=== PATIENT | female | born 1990 | race Two or more races ===

== ENCOUNTER → 2021-12-08 10:42 | Outpatient (BNVA) | payer OTHER, SELFPAY | PROVIDERS: Visit Provider Physician Assistant Medical | DX: S39.011A Strain of muscle, fascia and tendon of abdomen, initial encounter (principal); S76.011A Strain of muscle, fascia and tendon of right hip, initial encounter; S39.012A Strain of muscle, fascia and tendon of lower back, initial encounter; W01.0XXA Fall on same level from slipping, tripping and stumbling without subsequent striking against object, initial encounter | CPT/HCPCS: 99203 ==

== ENCOUNTER → 2021-12-15 13:40 | Outpatient (BNVA) | payer OTHER, SELFPAY | PROVIDERS: Visit Provider Physician Assistant Medical | DX: S39.011A Strain of muscle, fascia and tendon of abdomen, initial encounter (principal); S76.011A Strain of muscle, fascia and tendon of right hip, initial encounter; S39.012A Strain of muscle, fascia and tendon of lower back, initial encounter; M54.16 Radiculopathy, lumbar region; W01.0XXA Fall on same level from slipping, tripping and stumbling without subsequent striking against object, initial encounter | CPT/HCPCS: 99213 ==

== ENCOUNTER → 2021-12-27 14:32 | Outpatient (BNVA) | payer OTHER, SELFPAY | PROVIDERS: Visit Provider Physician Assistant Medical | DX: S39.011D Strain of muscle, fascia and tendon of abdomen, subsequent encounter (principal); S76.011D Strain of muscle, fascia and tendon of right hip, subsequent encounter; S39.012D Strain of muscle, fascia and tendon of lower back, subsequent encounter; M54.16 Radiculopathy, lumbar region; W01.0XXD Fall on same level from slipping, tripping and stumbling without subsequent striking against object, subsequent encounter | CPT/HCPCS: 99213 ==

== ENCOUNTER → 2022-01-09 13:51 | Outpatient (BNVA) | payer OTHER, SELFPAY | PROVIDERS: Visit Provider Physician Assistant Medical | DX: S39.011D Strain of muscle, fascia and tendon of abdomen, subsequent encounter (principal); S76.011D Strain of muscle, fascia and tendon of right hip, subsequent encounter; S39.012D Strain of muscle, fascia and tendon of lower back, subsequent encounter; W01.0XXD Fall on same level from slipping, tripping and stumbling without subsequent striking against object, subsequent encounter; M54.16 Radiculopathy, lumbar region; M25.562 Pain in left knee | CPT/HCPCS: 73564; 99214 ==

== ENCOUNTER 2022-01-17 15:00 | Outpatient (RCR) | payer OTHER, SELFPAY ==
--- NOTE | 2021-12-20 18:07 | MHC.PT.EP ---
[facility] [place] Office [place] Office [place] Office [address] [phone] F: [phone] F: [phone] F: [phone] F: [phone] Physical Therapy Plan of Care Date of Evaluation: Date of Surgery: Diagnosis: R hip/groin strain, R lumbar sprain with radiculopathy Assessment: Patient is pleasant 31 y.o woman who comes to PT with dx of R hip/groin strain and R lumbar strain with radiculopathy after slip and fall injury at work. She presents with limited AROM, pain, weakness, antalgic gait, impaired functional mobility with squatting, bending, lifting, reaching and is unable to perform full duty work tasks at this time. She is a good candidate for skilled physical therapy to address aforementioned impairments and restore to PLOF and return to full duty work. Frequency and Duration: The patient will be seen 2x/week for 6 weeks Short Term Goals: 3 weeks Patient is able to demonstrate independence with HEP to self manage symptoms and reduce pain level 4/10. Patient presents with increased R hip flexion 115 degrees without pain to be able to perform squats for work tasks. 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 Patient presents with increased hip flexion strength 5/5 to be able to ascend/descend steps or rungs of ladder for work tasks. Treatment Plan: Modalities to reduce pain, spasms and effusion. Manual therapy to restore motion and function. Therapeutic exercise to improve strength and flexibility. Neuromuscular re-education for posture and balance. Therapeutic activities to return to functional activities of daily living. Electronically signed by: Julissa Pedro, PT, DPT Please sign and return to therapist. Thank you for your referral.
--- NOTE | 2022-02-24 14:22 | MHC.PT.DC ---
[facility] [place] Office [place] Office [place] Office [address] [place] [address] [phone] F: [phone] F: [phone] F: [phone] F: [phone] Physical Therapy Discharge Report Diagnosis: R hip/groin strain, R lumbar sprain with radiculopathy Date of Surgery: Date of Evaluation: 12/20/21 Date of Discharge: 02/24/22 Treatments to Date: 6 Cancellations to Date: 2 No Shows to Date: Discharge Status: Visit Non-compliance Discharge Summary: Patient was last treated in PT 01/17/22. She did not attend any FUP visits past 01/17/22. Therfore she is discharged from PT. Electronically signed by: Julissa Pedro, PT, DPT Please sign and return to therapist. Thank you for your referral.
== END 2022-02-24 14:22 | disposition home or self-care (01) ==
LOC: HO.PT 15:00
PROVIDERS: Visit Provider Physician Assistant Medical
DX: M54.16 Radiculopathy, lumbar region (principal); S39.011D Strain of muscle, fascia and tendon of abdomen, subsequent encounter; S76.011D Strain of muscle, fascia and tendon of right hip, subsequent encounter
CPT/HCPCS: 97110; 97140; 97161; 97530

== ENCOUNTER → 2022-01-24 13:27 | Outpatient (BNVA) | payer OTHER, SELFPAY | PROVIDERS: Visit Provider Physician Assistant Medical | DX: S39.011D Strain of muscle, fascia and tendon of abdomen, subsequent encounter (principal); S76.011D Strain of muscle, fascia and tendon of right hip, subsequent encounter; S39.012D Strain of muscle, fascia and tendon of lower back, subsequent encounter; W01.0XXD Fall on same level from slipping, tripping and stumbling without subsequent striking against object, subsequent encounter; M54.16 Radiculopathy, lumbar region; M25.562 Pain in left knee | CPT/HCPCS: 99213 ==

== ENCOUNTER → 2022-02-02 13:45 | Outpatient (BNVA) | payer OTHER, SELFPAY | PROVIDERS: Visit Provider Physician Assistant Medical | DX: M25.562 Pain in left knee (principal); S76.011D Strain of muscle, fascia and tendon of right hip, subsequent encounter; S39.011D Strain of muscle, fascia and tendon of abdomen, subsequent encounter; S39.012D Strain of muscle, fascia and tendon of lower back, subsequent encounter; W01.0XXD Fall on same level from slipping, tripping and stumbling without subsequent striking against object, subsequent encounter | CPT/HCPCS: 99213 ==

== ENCOUNTER 2022-02-21 14:55 | Outpatient (REF) | payer OTHER, SELFPAY ==
--- NOTE | ~2022-02-21 | MR_ITS ---
EXAMINATION: MR KNEE WITHOUT CONTRAST, LEFT CLINICAL INFORMATION: Previous falls with persistent pain COMPARISON: None TECHNIQUE: MRI of the knee without contrast was performed using routine sequences on a high-field scanner. FINDINGS: MENISCI: Medial Meniscus: There is a peripheral vertical longitudinal tear of the posterior horn. Lateral Meniscus: Intact LIGAMENTS: Cruciate: Chronic complete ACL tear with resorption. The posterior cruciate ligament is intact. Collateral: Intact EXTENSOR MECHANISM: Intact ARTICULAR CARTILAGE/BONE: Patellofemoral Compartment: Normal Medial Compartment: Normal Lateral Compartment: Normal JOINT FLUID AND BURSAE: No significant joint effusion. MR/MR knee LT wo con IMPRESSION: 1. Chronic complete ACL tear with resorption. 2. Peripheral vertical longitudinal tear of the posterior horn of the medial meniscus.
== END 2022-02-21 14:56 | disposition home or self-care (01) ==
LOC: HO.MRI 14:55
PROVIDERS: Visit Provider Internal Medicine
DX: M25.562 Pain in left knee (principal); Z91.81 History of falling
CPT/HCPCS: 73721

== ENCOUNTER → 2022-03-02 13:39 | Outpatient (BNVA) | payer OTHER, SELFPAY | PROVIDERS: Visit Provider Physician Assistant Medical | DX: S83.512D Sprain of anterior cruciate ligament of left knee, subsequent encounter (principal); S83.242D Other tear of medial meniscus, current injury, left knee, subsequent encounter; S39.012D Strain of muscle, fascia and tendon of lower back, subsequent encounter; S76.011D Strain of muscle, fascia and tendon of right hip, subsequent encounter; W01.0XXD Fall on same level from slipping, tripping and stumbling without subsequent striking against object, subsequent encounter | CPT/HCPCS: 99213 ==

== ENCOUNTER → 2022-03-16 14:17 | Outpatient (BNVA) | payer OTHER, SELFPAY | PROVIDERS: Visit Provider Physician Assistant Medical | DX: M25.562 Pain in left knee (principal); S83.512D Sprain of anterior cruciate ligament of left knee, subsequent encounter; S83.242D Other tear of medial meniscus, current injury, left knee, subsequent encounter; S39.012D Strain of muscle, fascia and tendon of lower back, subsequent encounter; W01.0XXD Fall on same level from slipping, tripping and stumbling without subsequent striking against object, subsequent encounter | CPT/HCPCS: 99213 ==

== ENCOUNTER 2022-03-23 14:23 | Outpatient (REF) | payer OTHER, SELFPAY ==
--- NOTE | ~2022-03-23 | MR_ITS ---
EXAMINATION: MR LUMBAR SPINE WITHOUT CONTRAST CLINICAL INFORMATION: Strain. Radiculopathy. COMPARISON: No relevant prior imaging. TECHNIQUE: MRI of the lumbar spine was obtained using routine sequences without contrast. FINDINGS: Alignment is normal. Vertebral heights are preserved. No acute bone marrow signal changes. There is disc desiccation at L4-L5 and L5-S1 without substantial loss of intervertebral disc height. The tip of the conus medullaris is located at T12-L1. No mass effect on the conus. Visualized distal cord signal intensity is normal. At L1-L2, L2-L3, and L3-L4 the annular contours are normal. No canal or neuroforaminal compromise at levels. At L4-L5 there is a slightly bulging disc. Bilateral facet degenerative change. No canal stenosis. No mass effect on the traversing or foraminal nerve roots. At L5-S1 there is a broad shallow central protrusion. Bilateral facet degenerative change. No canal stenosis. Partial effacement of the perineural fat with mild mass effect on both L5 foraminal nerve root. Limited visualization of the retroperitoneal anatomy reveals no abnormal finding. Psoas and paraspinal muscle groups are symmetric. MR/MR lumbar spine wo con IMPRESSION: There is a broad shallow central protrusion at L5-S1 causing mild mass effect on both L5 foraminal nerve roots. Otherwise no substantial mass effect on the traversing or foraminal nerve roots elsewhere within the lumbar spine. No canal stenosis.
== END 2022-03-23 14:24 | disposition home or self-care (01) ==
LOC: HO.MRI 14:23
PROVIDERS: Visit Provider Internal Medicine
DX: M54.16 Radiculopathy, lumbar region (principal)
CPT/HCPCS: 72148

== ENCOUNTER → 2022-03-30 14:20 | Outpatient (BNVA) | payer OTHER, SELFPAY | PROVIDERS: Visit Provider Physician Assistant Medical | DX: S83.242D Other tear of medial meniscus, current injury, left knee, subsequent encounter (principal); S83.422D Sprain of lateral collateral ligament of left knee, subsequent encounter; W01.0XXD Fall on same level from slipping, tripping and stumbling without subsequent striking against object, subsequent encounter; M51.27 Other intervertebral disc displacement, lumbosacral region | CPT/HCPCS: 99213 ==

== ENCOUNTER → 2022-05-01 15:05 | Outpatient (BNVA) | payer OTHER, SELFPAY | PROVIDERS: Visit Provider Physician Assistant Medical | DX: S83.32XD Tear of articular cartilage of left knee, current, subsequent encounter (principal); S83.242D Other tear of medial meniscus, current injury, left knee, subsequent encounter; W18.30XD Fall on same level, unspecified, subsequent encounter; M51.27 Other intervertebral disc displacement, lumbosacral region | CPT/HCPCS: 99213 ==

== ENCOUNTER → 2022-05-08 08:06 | Outpatient (BNVA) | payer OTHER, SELFPAY | PROVIDERS: Visit Provider Internal Medicine | DX: M53.3 Sacrococcygeal disorders, not elsewhere classified (principal); S83.519A Sprain of anterior cruciate ligament of unspecified knee, initial encounter | CPT/HCPCS: 99202 ==

== ENCOUNTER → 2022-05-23 15:01 | Outpatient (BNVA) | payer OTHER, SELFPAY | PROVIDERS: Visit Provider Physician Assistant Medical | DX: M51.27 Other intervertebral disc displacement, lumbosacral region (principal); M53.3 Sacrococcygeal disorders, not elsewhere classified; S83.512D Sprain of anterior cruciate ligament of left knee, subsequent encounter; S83.242D Other tear of medial meniscus, current injury, left knee, subsequent encounter; W01.0XXD Fall on same level from slipping, tripping and stumbling without subsequent striking against object, subsequent encounter | CPT/HCPCS: 99213 ==

== ENCOUNTER → 2022-07-03 14:50 | Outpatient (BNVA) | payer OTHER, SELFPAY | PROVIDERS: Visit Provider Physician Assistant Medical | DX: S39.012D Strain of muscle, fascia and tendon of lower back, subsequent encounter (principal); S83.512D Sprain of anterior cruciate ligament of left knee, subsequent encounter; W01.0XXD Fall on same level from slipping, tripping and stumbling without subsequent striking against object, subsequent encounter; M51.27 Other intervertebral disc displacement, lumbosacral region | CPT/HCPCS: 99213 ==

== ENCOUNTER → 2022-09-07 10:32 | Outpatient (BNVA) | payer OTHER, SELFPAY | PROVIDERS: Visit Provider Physician Assistant Medical | DX: M51.16 Intervertebral disc disorders with radiculopathy, lumbar region (principal); M23.92 Unspecified internal derangement of left knee; M23.204 Derangement of unspecified medial meniscus due to old tear or injury, left knee; Z91.81 History of falling | CPT/HCPCS: 99213 ==

== ENCOUNTER → 2023-12-03 09:57 | Outpatient (BNVA) | payer OTHER, SELFPAY | PROVIDERS: Visit Provider Physician Assistant Medical | DX: S39.012A Strain of muscle, fascia and tendon of lower back, initial encounter (principal); X50.3XXA Overexertion from repetitive movements, initial encounter | CPT/HCPCS: 99203 ==

== ENCOUNTER → 2023-12-11 10:08 | Outpatient (BNVA) | payer OTHER, SELFPAY | PROVIDERS: Visit Provider Physician Assistant Medical | DX: S39.012A Strain of muscle, fascia and tendon of lower back, initial encounter (principal); X50.3XXA Overexertion from repetitive movements, initial encounter | CPT/HCPCS: 99213 ==

== ENCOUNTER 2023-12-14 11:00 | Outpatient (RCR) | payer OTHER, MEDICAID, SELFPAY ==
--- NOTE | 2023-12-07 11:22 | MHC.PT.EP ---
[facility] [place] Office [place] Office [place] Office [address] [phone] F: [phone] F: [phone] F: [phone] F: [phone] Physical Therapy Plan of Care Date of Evaluation: 12/07/23 Date of Surgery: Diagnosis: LS strain Assessment: 33 y/o female referred to PT with LS strain from work connection. Pt reports injury occurred 11/28- when performing new job task of lifting 50-60# boxes from hip height to overhead following release from light duty. Of note, pt reports initial work injury 2 years ago when she slipped and fell on wet floor. She landed on L flexed knee and R extended leg (splits?). She went via ambulance to hospital and lumbar MRI was done. States she has pinched nerve L5-S1 and L ACL tear. She underwent PT for L ACL repair 07/27/23 and was on light duty until 11/27/2023. S/s consistent with lumbar derangement resulting in pain and difficulty with forward bending, lifting, walking, moving in bed, reversing in car, and work duties. Examination shows decreased lumbar ROM, pain, decreased R hip ROM, decreased core/hip strength, impaired postural awareness and impaired gait pattern. Recommend PT 2x/week for 5 weeks to address impairments, implement HEP, and optimize fucntional mobility Frequency and Duration: The patient will be seen 2x/week for 5 weeks Short Term Goals: 3 weeks I with HEP Pt will demonstrate R hip ER/IR ROM to 30 * to facilitate functional movement pt will reports 50% decrease in pain with functional activity Vp Clinical Research Goals: 5 weeks I with HEP and self management of sx Pt will be able to ambulate > 25 minutes with pain < 3/10 Pt will be able to lift > 30# with pain < 3/10 and proper mechanics Treatment Plan: Modalities to reduce pain, spasms and effusion. Manual therapy to restore motion and function. Therapeutic exercise to improve strength and flexibility. Neuromuscular re-education for posture and balance. Therapeutic activities to return to functional activities of daily living. Electronically signed by: Merna Velez PT Please sign and return to therapist. Thank you for your referral.
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
== END 2024-01-28 08:28 | disposition home or self-care (01) ==
LOC: HO.PTCHIC 11:00
PROVIDERS: Visit Provider Physician Assistant Medical
DX: S39.012D Strain of muscle, fascia and tendon of lower back, subsequent encounter (principal)
CPT/HCPCS: 97110; 97140; 97162

== ENCOUNTER → 2023-12-24 11:27 | Outpatient (BNVA) | payer OTHER, SELFPAY | PROVIDERS: Visit Provider Physician Assistant Medical | DX: S39.012A Strain of muscle, fascia and tendon of lower back, initial encounter (principal); X50.3XXA Overexertion from repetitive movements, initial encounter | CPT/HCPCS: 99213 ==

== ENCOUNTER → 2024-01-14 09:13 | Outpatient (BNVA) | payer OTHER, SELFPAY | PROVIDERS: Visit Provider Physician Assistant Medical | DX: S39.012D Strain of muscle, fascia and tendon of lower back, subsequent encounter (principal); X50.3XXD Overexertion from repetitive movements, subsequent encounter; M25.562 Pain in left knee | CPT/HCPCS: 99213 ==

== ENCOUNTER → 2024-01-29 13:19 | Outpatient (BNVA) | payer OTHER, SELFPAY | PROVIDERS: Visit Provider Physician Assistant Medical | DX: S39.012D Strain of muscle, fascia and tendon of lower back, subsequent encounter (principal); X50.3XXD Overexertion from repetitive movements, subsequent encounter; M54.17 Radiculopathy, lumbosacral region | CPT/HCPCS: 99213 ==

== ENCOUNTER → 2024-03-11 09:56 | Outpatient (BNVA) | payer OTHER, SELFPAY | PROVIDERS: Visit Provider Physician Assistant Medical | DX: M46.1 Sacroiliitis, not elsewhere classified (principal); M54.50 Low back pain, unspecified | CPT/HCPCS: 99213 ==

== ENCOUNTER 2024-03-25 13:55 | Outpatient (RCR) | payer OTHER, SELFPAY ==
--- NOTE | 2024-02-14 16:18 | MHC.PT.EP ---
[facility] [place] Office [place] Office [place] Office [address] [place] [address] [phone] F: [phone] F: [phone] F: [phone] F: [phone] Physical Therapy Plan of Care Date of Evaluation: 02/14/24 Date of Surgery: N/A for spine Diagnosis: lumbar sacral strain (RL) Assessment: pt is a 33 y/o female presenting to physical therapy w/ referring diagnosis of lumbar sacral strain. Impairments include pain, decreased range of motion, decreased strength, impaired functional mobility, impaired postural awareness, and altered ambulation mechanics. pt is a good candidate for skilled PT due to age, potential remediation of impairments, typical disease/condition progression and prognosis, comorbidities, and motivation. pt would benefit from skilled PT intervention to provide a tailored strengthening and stretching exercise program, functional training, gait training, postural re-training, neuromuscular re-education, modalities as needed for pain, equipment safety demonstration. Frequency and Duration: The patient will be seen 2x/wk for 6 wks Short Term Goals: pt will be I w/ HEP to promote self-management of condition. pt will demo proper sitting posture w/ lumbar roll to promote neutral spine w/ seated ADLs. Senior Care Goals: pt will report a statistically significant improvement in self-reported outcome measure, [place], to promote return to PLOF. pt will demo proper lifting mechanics w/ 45# x5 reps to promote neutral spine w/ lifting. Treatment Plan: Modalities to reduce pain, spasms and effusion. Manual therapy to restore motion and function. Therapeutic exercise to improve strength and flexibility. Neuromuscular re-education for posture and balance. Therapeutic activities to return to functional activities of daily living. Electronically signed by: Columba Maher PT, DPT Please sign and return to therapist. Thank you for your referral.
--- NOTE | 2024-04-03 14:38 | MHC.PT.DC ---
[facility] [place] Office [place] Office [place] Office [address] [place] [address] [phone] F: [phone] F: [phone] F: [phone] F: [phone] Physical Therapy Discharge Report Diagnosis: lumbar sacral strain (RL) Date of Surgery: N/A for spine Date of Evaluation: 02/14/24 Date of Discharge: 04/03/24 Treatments to Date: 9 Cancellations to Date: 2 No Shows to Date: 1 Discharge Status: Improved Function Independent with HEP Discharge Summary: The patient overall has been having little to no radicular symptoms. She continues to have intermittent back pain which she describes as sore and uncomfortable. At this time, she would like to pursue an MRI and follow-up with her providers to determine if there are any other interventions that may be appropriate for back pain management. She is discharged to her home exercise program at this time. Electronically signed by: Columba Maher PT, DPT Please sign and return to therapist. Thank you for your referral.
== END 2024-04-03 14:39 | disposition home or self-care (01) ==
LOC: HO.PT 13:55
PROVIDERS: Visit Provider Physician Assistant Medical
DX: S39.012D Strain of muscle, fascia and tendon of lower back, subsequent encounter (principal)
CPT/HCPCS: 97110; 97112; 97161; 97164

== ENCOUNTER → 2024-04-07 15:09 | Outpatient (BNVA) | payer OTHER, SELFPAY | PROVIDERS: Visit Provider Physician Assistant Medical | DX: M54.17 Radiculopathy, lumbosacral region (principal) | CPT/HCPCS: 99213 ==

== ENCOUNTER 2024-04-12 08:12 | Outpatient (REF) | payer OTHER, SELFPAY | END 2024-04-12 08:13 | disposition home or self-care (01) | LOC: HO.MRI 08:12 | PROVIDERS: Visit Provider Internal Medicine | DX: M54.50 Low back pain, unspecified (principal) | CPT/HCPCS: 72148 ==

== ENCOUNTER → 2024-04-12 08:20 | Outpatient (BNV) | payer OTHER, SELFPAY | PROVIDERS: Visit Provider Radiology Diagnostic Radiology | DX: M47.896 Other spondylosis, lumbar region (principal); M48.07 Spinal stenosis, lumbosacral region; M51.27 Other intervertebral disc displacement, lumbosacral region | CPT/HCPCS: 72148 ==

== ENCOUNTER → 2024-05-01 14:51 | Outpatient (BNVA) | payer OTHER, SELFPAY | PROVIDERS: Visit Provider Physician Assistant Medical | DX: M48.061 Spinal stenosis, lumbar region without neurogenic claudication (principal); S33.6XXD Sprain of sacroiliac joint, subsequent encounter; X50.3XXD Overexertion from repetitive movements, subsequent encounter | CPT/HCPCS: 99213 ==

== ENCOUNTER → 2024-05-08 09:40 | Outpatient (BNVA) | payer OTHER, SELFPAY | PROVIDERS: Visit Provider Physician Assistant Medical | DX: M48.07 Spinal stenosis, lumbosacral region (principal); R53.83 Other fatigue; T48.1X5A Adverse effect of skeletal muscle relaxants [neuromuscular blocking agents], initial encounter | CPT/HCPCS: 99213 ==

== ENCOUNTER 2024-05-30 11:45 | Outpatient (AMB) | payer OTHER, SELFPAY ==
--- NOTE | 2024-05-30 11:47 | A.OFFVIS_ITS ---
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 Having experienced chronic low back pain attributed to sacroiliac joint dysfunction and L5-S1 disc degeneration following a fall while at work, she notes persistent pain primarily on the right side of the back. The pain has been described as non-radiating to the lower legs, with occasional right knee discomfort, but not extending to her feet. The patient undertook physical therapy treatments; however, the results were unsatisfactory in ameliorating her symptoms. She has expressed concern over exercise strategies, which seem not directly targeting the source of her pain. She reports overall decline in strength, feeling weaker on her left side, with ongoing moderate symptoms without significant improvement. A recent MRI reported mild findings, leading to consideration of a diagnostic injection to assess potential sacroiliac joint issues more accurately. Pain Description - Onset and Timing: Pain began after a fall, work-related injury. - Quality and Character: Described as persistent on the right side of the back. - Primary Location: Right-sided back pain. - Radiation: Occasionally to the right knee; no pain to foot or ankle. - Exacerbating Factors: Activity increases discomfort, particuarly ineffective therapeutic exercises. - Relieving Factors: None noted as physical therapy not achieving desired relief. - Impact on Function: Difficulty in utilizing right leg; overall decreased physical strength. Physical Exam - Musculoskeletal- Positive Alexander test, positive sacroiliac joint compression, and thrust test noted. Results - Imaging: Reviewed MRI, mild findings unresolved as primary cause of severity of symptoms. Pain Management - Affect: Noted decline in feeling strong; feeling angered and sad due to ongoing symptoms and reduced function. - Analgesia: No specific pain medication regimen mentioned; management not specified in conversation. - Adverse Effects: None noted. - Activities of Daily Living: Feeling weaker, difficulty using right leg, impacting daily life. - Aberrant Drug Related Behaviors: None noted. Physical Exam Vital Signs: Last Vital Signs Pulse 67 05/30/24 11:49 Resp 16 05/30/24 11:49 BP 111/58 L 05/30/24 11:49 Pulse Ox 99 05/30/24 11:49 Oxygen Delivery Method Room Air 05/30/24 11:49 BMI result Body Mass Index 31.3 Assessment & Plan Assessment & Plan (1) Sacroiliac joint pain: Code(s): M53.3 - Sacrococcygeal disorders, not elsewhere classified Category: Medical Plan Plan For sacroiliac joint dysfunction and right-sided back pain, a diagnostic injection at the sacroiliac joint is intended to confirm the pain source, pending insurance authorization. This injection doubles as both diagnostic and therapeutic if confirmed. The patient's dissatisfaction with current physical therapy strategies was noted. The first injection's diagnostic purpose was highlighted to ascertain thorough pain origin confirmation. No immediate surgical interventions were discussed at this time. Patient was informed and verbally consented to the use of an ambient scribe for clinic note documentation during this visit. Discussion Notes During the consultation, we discussed the likely original sacroiliac joint dysfunction diagnosis, along with management strategies for her back pain. The possibility of proceeding with a diagnostic injection to confirm the sacroiliac joint as the pain source was emphasized, which would guide future therapeutic measures. Explanation of injection procedure details was provided, stating its role as a test to identify pain sources accurately. The alternatives, including continued physical therapy, were reviewed, with recognition of its current ineffectiveness per patient reporting. Consent discussions clarified that no surgical intervention is currently planned, focusing on injections and evidence- driven pain identification. Patient Instructions - Await contact regarding insurance approval for a sacroiliac joint diagnostic injection. - Be prepared for a potential follow-up once results are obtained and further management strategies are devised. - Consider discussing concerns regarding physical therapy with the physical therapy team for more targeted approaches. - Report any major changes or worsening symptoms promptly. Coding Level of Care Code Est Pt Level 4 (48762) Diagnoses Sacroiliac joint pain M53.3
[2024-05-30 11:49] VITALS: BP 111/58; PULSE 67; RESP 16; O2SAT 99; BMI 31.3
--- OUTSIDE RECORDS SUMMARY | 2024-05-30 13:47 | XMS_ITS | Clinical Summary ---
Author Organization [facility] Address [address] [place] [address] Care Team Providers Care Senior Maintenance Technician Name Role Phone Apollo Tang Primary Care Provider [phone] Source Comments PLEASE NOTE, if this patient is a minor, it may be UNLAWFUL to discuss sensitive information that is contained in these records (such as FAMILY PLANNING, MENTAL HEALTH or SUBSTANCE ABUSE) with the minor patient's parent or other person without the patient's specific authorization.[facility] Allergies Active Allergy Reactions Criticality Noted Date Comments Tramadol Other Severe High 03/30/2015 Medications dextromethorphan-g uaifenesin (HUMIBID DM) 30-600 mg per 12 hr tabletIndications: Advice given about COVID-19 virus by telephone,Bronchit is Take 1 Tab by mouth 2 (two) times daily 30 Tab 3 0 Active naproxen (NAPROSYN) 500 mg tabletIndications: Left shoulder pain, unspecified chronicity,Right lateral epicondylitis Take 1 Tablet by mouth 2 (two) times daily with a meal 60 Tablet 1 1 Active PARoxetine HCl (PAXIL) 20 mg tabletIndications: Anxiety and depression Take 1 Tablet by mouth every morning 30 Tablet 2 1 Active hydrOXYzine HCL (ATARAX) 25 mg tabletIndications: Anxiety and depression Take 1 Tablet by mouth 3 (three) times daily as needed for anxiety or sleep 30 Tablet 1 1 Active ibuprofen 800 mg tabletIndications: Neck pain Take 1 Tablet by mouth 3 (three) times daily as needed for pain 90 Tablet 3 Active cyclobenzaprine (FLEXERIL) 5 mg tabletIndications: Neck pain TAKE 1 TABLET BY MOUTH THREE TIMES A DAY NEEDED FOR MUSCLE SPASMS 90 Tablet 3 Active Active Problems Problem Noted Date Diagnosed Date Positive QuantiFERON-TB Gold test 02/01/2023 Overview (02/01/2023): Pt NOS x 2. Case closed. Anemia 02/01/2023 Class 1 obesity 02/01/2023 Gastroesophageal reflux disease 02/01/2023 History of tubal ligation 02/01/2023 Overview (02/01/2023): DATE:06/01/2014 PREOPERATIVE DIAGNOSIS: Undesired fertility. POSTOPERATIVE DIAGNOSIS: Undesired fertility. OPERATION: Laparoscopic bilateral tubal ligation. SURGEON: Mariela Vang M.D. ASSISTANTS: Walter Colby M.D. and Andria Perkins D.O. OPERATIVE FINDINGS: Normal uterus, normal bilateral tubes and ovaries. ESTIMATED BLOOD LOSS: Less than 5 mL. TYPE OF ANESTHESIA: General. 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 03/12/2019 Exposure to TB 03/06/2019 Bilateral carpal tunnel syndrome 03/30/2015 Resolved Problems Problem Noted Date Diagnosed Date Resolved Date Costochondral chest pain 03/30/201503/2019 Gall stones 03/30/2015 02/27/2019 Immunizations Immunization Administration Dates Next Due DTAP 11/04/1992, 2,09/10/1990,12/13/1989, 1988 HEP B, PED/ADOL 08/13/2005,03/20/2005,11/24/2002 ,04/12/1990 HPV, QUADRIVALENT 03/21/2011,02/02/2009,07/23/19 09 INFLUENZA, SEASONAL, INJECTABLE 12/17/2019,11/16,12/09/2013,03/05/2013 IPV 11/04/1992,09/10/1990,12/13/1989 ,1988 MMR (MMR II/Priorix) 04/19/2005,05/30/2004,11/04,06/03/1990 PPD 02/27/2019,10/03/2017,11/15/2016 ,10/13/2015 TDAP 12/09/2013,03/05/2013 Td (adult) unspecified 02/04/2004 Family History Medical History Relation Name Comments Diabetes Maternal Grandmother Heart attack Mother Hypertension Mother Kidney disease Mother Relation Name Status Comments Father Other Maternal Grandmother Mother Social History Tobacco Use Types Packs/Day Years Used Date Smoking Tobacco: Never Cigarettes Smokeless Tobacco: Never Tobacco Cessation:Counseling Given: Not Answered Alcohol Use Standard Drinks/Week Comments No 0 (1 standard drink = 0.6 oz pur e alcohol) Social Connections Answer Date Recorded Connectedness 0 11/03/2023 Financial Resource Strain Answer Date R ecorded Financial Resource Strain 0 2018 Stress Answer Date Recorded Stress 0 10/14/2018 Physical Activity Answer Date Recorded Physical Activity 0 10/14/2018 Food Insecurity Answer Date Recorded Food 0 11/22/2023 Transportation Needs Answer Date Record ed Transportation 0 10/14/2018 Housing Stability Answer Date Recorded Housing 0 10/14/2018 Safety and Environment Answer Date Yoni rded Safety 0 10/22/2020 Utilities Answer Date Recorded Utilities 0 10/14/2018 Employment Answer Date Recorded Employment 0 10/14/2018 Comments No Sex and Gender Information Value Date Recorded Sex Assigned at Female 02/06/2017 7:49 AM PST Legal Sex Female 6:37 AM PST Gender Identity Female 02/06/2017 7:49 AM PST Sexual Orientation Straight 02/06/2017 7: 49 AM PST 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 Not on file Not on file Last Filed Vital Signs Vital Sign Reading Time Taken Comments Blood Pressure 114/79 02/01/2023 11:37 AM EST Pulse 78 02/01/2023 11:37 AM EST Temperature 37 ??C (98.6 ??F) 02/01/2023 11:37 AM EST Respiratory Rate 18 02/01/2023 11:37 AM EST Oxygen Saturation 97% 02/01/2023 11:37 AM EST Inhaled Oxygen Concentration - - Weight 88.9 kg (196 lb) 02/01/2023 11:37 AM EST Height 167.6 cm (5' 6 ) 02/01/2023 11:37 AM EST Body Mass Index 31.64 02/01/2023 11:37 AM EST Plan of Treatment Health Maintenance Due Date Last Done Comments Anxiety Screening 1988 HPV Screening 1988 Pap + HPV 1988 Cervical Cancer Screening 03/30/2018 Pap Smear 03/30/2018 03/30/2015 [id number] ( season) 2023 Imm-Influenza (#1) 2023 12/17/2019, 0 03/29/2017, 11/17/2015, Additional history exists Annual Preventive Care Visit 02/02/202408/2022, 02/27/2019, 11/17/2015 Relationship Safety Screening/Counseling 02/02/2024 02/01/2023, 10/22/2020, 03/29/2017 Tobacco Screening 02/02/2024 02/01/2023 Alcohol and Drug Screen 02/27/2024 02/02/20 23, 10/22/2020, 02/27/2019, Additional history exists Depression Annual Screen 02/27/2024 023, 03/29/2017, 03/30/2015, Additional history exists Imm-DTaP/Tdap/Td (9 - Td or Tdap) 10/08/2024 10/08/2014 (Managed by Outside Provider), 12/09/2013, 03/05/2013, Additional history exists Hypertension Screening (#1) 01/31/2026 Diabetes Screening 02/01/2026 02/01/2023, 1 04/04/2022, 02/27/2019, Additional history exists Imm-Hepatitis B Completed 08/13/2005, 02/27, 11/24/2002, Additional history exists Hepatitis C Screening Completed 03/30/2017 HIV Screening Completed 02/27/2019, 03/30/2017 Cervical Ablation/Cold-Knife Conization Discontinued Cervical Cryotherapy Discontinued Colposcopy Discontinued Endometrial Biopsy Discontinued Excision/Leep Discontinued HPV Genotyping Discontinued Vaginal Pap Discontinued Vulvoscopy Discontinued Procedures Procedure Name Priority Date/Time Associated Diagnosis Comments COMPREHENSIVE METABOLIC PANEL Routine 02/01/2023 12:01 PM EST Routine adult health maintenance Other vitamin B12 deficiency anemia Other fatigue ANTIBODY HIV-1&HIV-2 SINGLE RESULT Routine 02/27/2019 2:54 PM EST Encounter for general adult medical examination w/o abnormal findings HEPATITIS A,B,C PANEL Routine 03/30/2017 10:20 AM EST Routine adult health maintenance from Last 3 Months or Most Recently Relevant to Health Maintenance Results * COMPREHENSIVE METABOLIC PANEL (02/01/2023 12:01 PM EST) GLUCOSE 79 65 - 99 mg/dL [facility] Comment: ?Fasting reference interval UREA NITROGEN (BUN) 12 7 - 25 mg/dL [facility] CREATININE (blood) 0.71 0.50 - 0.97 mg/dL [facility] EGFR 114 > OR = 60 mL/min/1. 73m2 [facility] BUN/CREATININE RATIO SEE NOTE: [facility] Comment: ?? Not Reported: BUN and Creatinine are within ?? reference range. ? SODIUM 137 135 - 146 mmol/L [facility] POTASSIUM 4.3 3.5 - 5.3 mmol/L [facility] CHLORIDE 104 98 - 110 mmol/L [facility] CARBON DIOXIDE 25 20 - 32 mmol/L [facility] CALCIUM 9.7 8.6 - 10.2 mg/dL [facility] PROTEIN, TOTAL 6.9 6.1 - 8.1 g/dL [facility] ALBUMIN 4.4 3.6 - 5.1 g/dL [facility] [place] [employer] GLOBULIN 2.5 1.9 - 3.7 g/dL (calc) [facility] ALBUMIN/GLOBULI N RATIO 1.8 1.0 - 2.5 (calc) [facility] BILIRUBIN, TOTAL 0.5 0.2 - 1.2 mg/dL [facility] ALKALINE PHOSPHATASE 53 31 - 125 U/L [facility] AST 12 10 - 30 U/L [facility] ALT 10 6 - 29 U/L [facility] Blood Blood / Unknown 02/01/2023 1 2:01 PM EST 02/01/2023 12:01 PM EST [facility] - BLOOD DRAW Edited Result - Final Performing Organization Address City/[facility]/ZIP Co de Phone Number [facility] [address] [address], [facility] [address] [place] [address] * HIV-1 & HIV-2 ANTIBODIES (02/27/2019 2:54 PM EST) HIV 1 AND 2 ANTIBODY SCREEN NEGATIVE NEGATIVE [facility] Comment: This assay is a 4th generation assay allowing for earlier detection of HIV infection by detecting the presence of the HIV-1 p24 antigen as well as the traditional antibodies to HIV type 1 (including group O) and type 2. ??Use of a 4th generation assay is the current CDC recommendation for HIV screening. Blood specimen (specimen) Blood / Unknown 02/27/2019 2:54 PM EST 02/27/2019 2:54 PM EST Narrative [facility] - 02/28/2019 11:42 AM EST [employer], [place] [address] Traffic Assistant - Jhoana Fernández MD PT ID [id number] ORD# [id number] [facility] - BLOOD DRAW Final Resu lt Performing Organization Address City/[facility] [place] [address], * (ABNORMAL) HEPATITIS A,B,C PANEL (03/30/2017 10:20 AM EST) HEPATITIS B SURFACE ANTIBODY POSITIVE(A) NEGATIVE [facility] HEPATITIS B SURFACE ANTIGEN NEGATIVE NEGATIVE [facility] Comment: Over the counter supplements containing high doses of biotin may interfere with this assay. ??If interference is suspected, patients shoud be retested after refraining from biotin supplements for 72 hours. HEPATITIS C VIRUS DIAGNOSTIC NEGATIVE NEGATIVE [facility] HEPATITIS A ANTIBODY TOTAL NEGATIVE NEGATIVE [facility] Comment: Over the counter supplements containing high doses of biotin may interfere with this assay. ??If interference is suspected, patients shoud be retested after refraining from biotin supplements for 72 hours. HEPATITIS B CORE ANTIBODY NEGATIVE NEGATIVE [facility] Blood specimen (specimen) Blood / Unknown 03/30/2017 10:20 AM EST 03/30/2017 10:33 AM EST Narrative [facility] - 03/30/2017 2:45 PM EST [facility] [address] [place] [address] PT ID [id number] ORD# [id number] [facility] - BLOOD DRAW Edited Result - Final [facility] [address] [place] [address], from Last 3 Months or Most Recently Relevant to Health Maintenance Insurance [facility] [employer] Care Teams Senior Maintenance Technician Relationship Specialty Start Date End Date Apollo Tang PA [address] [place] [address] PCP - General Internal Medicine 02/25/16
--- OUTSIDE RECORDS SUMMARY | 2024-05-30 13:47 | XMS_ITS | Clinical Summary ---
[facility] it Address [address] [place] [address] Care Team Providers Care Ordnance Keeper Name Role Phone Unavailable Primary Care Provider Unavailabl e Social History Tobacco Use Types Packs/Day Years Used Date Smoking Tobacco: Never Assessed Comments Unknown Sex and Gender Information Value Date Recorded Sex Assigned at Not on file Legal Sex Female 2:14 AM EST Gender Identity Not on file Sexual Orientation Not on file Plan of Treatment Health Maintenance Due Date Last Done Comments DTaP,Tdap,and Td Vaccines (1 - Tdap) 08/30/2007 Hepatitis B Vaccines (1 of 3 - 19+ 3-dose series) 08/30/2007 Cervical Cancer Screening: P ap Smear 2009 Depression Screening 01/29/2022 HIV Screening 01/29/2022 Hepatitis C Screening 01/29/2022 Social Influencers of Health Screening 01/29/2022 COVID-19 Vaccine ( - 2023-2 5 season) 2023 Influenza Vaccine (#1) 2023 HIB Vaccines Aged Out No longer eligi ble based on patient's age to complete this topic HPV Vaccines Aged Out No longer eligi ble based on patient's age to complete this topic Hepatitis A Vaccines Aged Out No long er eligible based on patient's age to complete this topic IPV Vaccines Aged Out No longer eligi ble based on patient's age to complete this topic MMR Vaccines Aged Out No longer eligi ble based on patient's age to complete this topic Meningococcal ACWY Vaccine Aged Out N o longer eligible based on patient's age to complete this topic Meningococcal B Vacine Aged Out No lo nger eligible based on patient's age to complete this topic Pneumococcal Vaccine: Pediat rics (0 to 5 Years) and At-Risk Patients (6 to 64 Years) Aged Out No longer eligible b ased on patient's age to complete this topic RSV Immunization Patients Un carlton 20 months Aged Out No longer eligible b ased on patient's age to complete this topic Varicella Vaccines Aged Out No longer eligible based on patient's age to complete this topic
== END 2024-05-30 12:07 | disposition home or self-care (01) ==
LOC: HO.PMC 11:46
PROVIDERS: PCP Dentist General Practice; Visit Provider Internal Medicine
DX: M53.3 Sacrococcygeal disorders, not elsewhere classified (principal)
CPT/HCPCS: 99214

== ENCOUNTER → 2024-05-30 11:45 | Outpatient (BNVA) | payer OTHER, SELFPAY | PROVIDERS: PCP Dentist General Practice; Visit Provider Internal Medicine | DX: M53.3 Sacrococcygeal disorders, not elsewhere classified (principal) | CPT/HCPCS: 99212 ==

== ENCOUNTER → 2024-06-03 12:49 | Outpatient (BNVA) | payer OTHER, SELFPAY | PROVIDERS: PCP Dentist General Practice; Visit Provider Physician Assistant Medical | DX: M53.3 Sacrococcygeal disorders, not elsewhere classified (principal); S39.012D Strain of muscle, fascia and tendon of lower back, subsequent encounter; X50.3XXD Overexertion from repetitive movements, subsequent encounter; M48.061 Spinal stenosis, lumbar region without neurogenic claudication | CPT/HCPCS: 99213 ==

== ENCOUNTER → 2024-06-24 12:36 | Outpatient (BNVA) | payer OTHER, SELFPAY | PROVIDERS: PCP Dentist General Practice; Visit Provider Physician Assistant Medical | DX: M53.3 Sacrococcygeal disorders, not elsewhere classified (principal); M54.50 Low back pain, unspecified | CPT/HCPCS: 99213 ==

== ENCOUNTER 2024-07-03 06:12 | Outpatient (REF) | payer OTHER, SELFPAY ==
--- NOTE | ~2024-07-03 | FL_ITS ---
EXAMINATION: FL GUIDANCE ONLY HISTORY: M53.3 - Sacrococcygeal disorders, not elsewhere classified COMPARISON: None available. TECHNIQUE: Fluoroscopy time: Less than 1 minute. Cumulative Dose: 2.80 mGy. DAP: 0.0224 mGym2 Images: 2. FINDINGS: Images demonstrate a needle in the region of the right sacroiliac joint. FL/FL guidance in treatment room IMPRESSION: Fluoroscopy during procedure. Please see procedure report for additional information. Electronically signed by: Joel Gunderson MD 07/03/2024 02:17 PM EDT
--- OUTSIDE RECORDS SUMMARY | 2024-07-03 06:15 | XMS_ITS | Clinical Summary ---
[facility] it Address [address] [place] [address] Care Team Providers Care Precision Farming Specialist Name Role Phone Unavailable Primary Care Provider [...] - 2023-2 5 season) 2023 Influenza Vaccine (Season Ended) 2024 HIB Vaccines Aged Out No longer eligi [...] age to complete this topic Meningococcal B Vaccine Aged Out No l onger eligible based on patient's age to complete [...]
--- OUTSIDE RECORDS SUMMARY | 2024-07-03 06:15 | XMS_ITS | Clinical Summary ---
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 on file Not [...] Cancer Screening 03/30/2018 Pap Smear 03/30/2018 03/30/2015 [id number] ( season) 2023 Imm-Influenza (#1) 2023 12/17/2019, [...] Procedure Name Priority Date/Time Associated Diagnosis Comments REFERRAL SCANNED DOCUMENT 05/30/2024 3:00 AM EDT COMPREHENSIVE METABOLIC PANEL Routine 02/01/2023 12:01 PM EST Routine adult health maintenance Other vitamin B12 deficiency anemia Other fatigue ANTIBODY HIV-1&HIV-2 SINGLE RESULT Routine 02/27/2019 2:54 PM EST Encounter for general adult medical examination w/o abnormal findings HEPATITIS A,B,C PANEL Routine 03/30/2017 10:20 AM EST Routine adult health maintenance from Last 3 Months or Most Recently Relevant to Health Maintenance Results * REFERRAL SCANNED DOCUMENT (05/30/2024 3:00 AM EDT) 05/30/2024 3:00 AM EDT [facility] REFERRAL Final Result * COMPREHENSIVE METABOLIC PANEL (02/01/2023 12:01 PM EST) GLUCOSE 79 65 - 99 mg/dL [facility] Comment: ?Fasting reference interval UREA NITROGEN (BUN) 12 7 - 25 mg/dL [facility] CREATININE (blood) 0.71 0.50 - 0.97 mg/dL [facility] EGFR 114 > OR = 60 mL/min/1. 73m2 [facility] BUN/CREATININE RATIO SEE NOTE: [facility] Comment: ?? Not Reported: BUN and Creatinine are within ?? reference range. ? SODIUM 137 135 - 146 mmol/L [facility] POTASSIUM 4.3 3.5 - 5.3 mmol/L [facility] CHLORIDE 104 98 - 110 mmol/L [facility] CARBON DIOXIDE 25 20 - 32 mmol/L [facility] CALCIUM 9.7 8.6 - 10.2 mg/dL [facility] PROTEIN, TOTAL 6.9 6.1 - 8.1 g/dL [facility] ALBUMIN 4.4 3.6 - 5.1 g/dL [facility] GLOBULIN 2.5 1.9 - 3.7 g/dL (calc) [facility] ALBUMIN/GLOBULI N RATIO 1.8 1.0 - 2.5 (calc) [facility] BILIRUBIN, TOTAL 0.5 0.2 - 1.2 mg/dL [facility] ALKALINE PHOSPHATASE 53 31 - 125 U/L [facility] AST 12 10 - 30 U/L [facility] ALT 10 6 - 29 U/L [facility] Blood Blood / Unknown 02/01/2023 1 2:01 PM EST 02/01/2023 12:01 PM EST [facility] - BLOOD DRAW Edited Result - Final Performing Organization Address City/[facility]/ZIP Co de Phone Number [facility] [address] [address], [place] [facility] [address] [address] * HIV-1 & HIV-2 ANTIBODIES (02/27/2019 2:54 PM EST) Pathologist [facility] HIV 1 AND 2 ANTIBODY SCREEN NEGATIVE NEGATIVE [facility] Comment: This assay is a [...] PM EST 02/27/2019 2:54 PM EST Narrative [facility] - 02/28/2019 11:42 AM EST [employer], [place] [address] Retail Loan Originator Assistant - Jhoana Fernández MD PT ID [id number] ORD# [id number] [facility] - BLOOD DRAW Final Resu lt Performing Organization Address City/[facility]/ZIP Co de Phone Number [address] [address], * (ABNORMAL) HEPATITIS A,B,C PANEL (03/30/2017 10:20 AM EST) HEPATITIS B SURFACE ANTIBODY POSITIVE(A) NEGATIVE [facility] HEPATITIS B SURFACE ANTIGEN NEGATIVE NEGATIVE [facility] Comment: Over the counter supplements containing high doses of biotin may interfere with this assay. ??If interference is suspected, patients shoud be retested after refraining from biotin supplements for 72 hours. HEPATITIS C VIRUS DIAGNOSTIC NEGATIVE NEGATIVE [facility] HEPATITIS A ANTIBODY TOTAL NEGATIVE NEGATIVE [facility] Comment: Over the counter supplements containing high doses of biotin may interfere with this assay. ??If interference is suspected, patients shoud be retested after refraining from biotin supplements for 72 hours. HEPATITIS B CORE ANTIBODY NEGATIVE NEGATIVE [facility] Blood specimen (specimen) Blood / Unknown 03/30/2017 10:20 AM EST 03/30/2017 10:33 AM EST Narrative [facility] - 03/30/2017 2:45 PM EST [email or web address] [address] [place] [address] PT ID [id number] ORD# [id number] [facility] - BLOOD DRAW Edited Result - Final [facility] [address] [place] [address], from Last 3 Months or Most Recently Relevant to Health Maintenance Insurance [id number] Care Teams Lamp Shades Supervisor Relationship Specialty Start Date End Date Apollo Tang PA [address] [place] [address] PCP - General Internal Medicine 02/25/16
== END 2024-07-03 06:13 | disposition home or self-care (01) ==
LOC: CF 06:12
PROVIDERS: Visit Provider Internal Medicine
DX: M53.3 Sacrococcygeal disorders, not elsewhere classified (principal)
CPT/HCPCS: 27096; J2003; J2795

== ENCOUNTER 2024-07-03 10:01 | Outpatient (AMB) | payer OTHER, SELFPAY ==
[2024-07-03 10:07] VITALS: BP 108/62; PULSE 88; O2SAT 98
--- NOTE | 2024-07-03 10:07 | MHC.OFFVIS ---
Vital Signs 07/03/24 10:07 07/03/24 10:35 Height 5 ft 5 in BP 108/62 110/70 Blood Pressure Location Lt brachial Rt brachial Position Sitting Sitting Pulse 88 70 Pulse Source Pulse Oximeter Pulse Oximeter Pulse Oximetry (%) 98 99 Oxygen Delivery Method Room Air Intake Visit Reasons: Right Dx SIJ injection Allergies tramadol Allergy (Severe, Verified 07/03/24 10:09) Anaphylaxis HPI HPI Right Dx SIJ injection: Details: Patient presents for scheduled procedure. Denies any recent cough, cold, infection, fever or other significant changes in medical history since last office visit. Physical Exam Vital Signs: Last Vital Signs Pulse 70 07/03/24 10:35 BP 110/70 07/03/24 10:35 Pulse Ox 99 07/03/24 10:35 Oxygen Delivery Method Room Air 07/03/24 10:35 Office Procedures AMB Joint Injection/Aspiration Joint Injection/Aspiration Details: Sacroiliac Joint Injection, Right The procedure, its benefits, and its risks were explained and written informed consent was obtained from the patient. Immediately prior to starting the procedure, a time-out safety check was conducted. The patient's identification, procedure name, procedure site, and procedure laterality were confirmed with the patient. ? Patient was placed prone on the fluoroscopy table and the lumbosacral area was prepped using ChloraPrep and draped with sterile drapein standard fashion. The C-arm was rotated in a contralateral oblique fashion until the medial border of the iliac crest no longer foreshadowed the posterior sacroiliac joint line. The skin and subcutaneous tissue was anesthetized using 1 mL of 0.75% plain lidocaine with 1.5-inch 25-gauge needle in the middle region of the joint line.? A 3.5-inch 22-gauge spinal needle with small bend on the tip was slowly advanced towards the joint line, coaxial to the x-ray beam. Once bony content was obtained, the needle was easily slid into the intra-articular space.? Intra-articular needle position was confirmed using lateral fluoroscopy.? A total volume of 2.5mL of solution containing 0.5% of bupivacaine was injected intra-articularly. The stylet was reinserted and needle was removed. The patient tolerated the procedure well. Patient denied any lower extremity weakness or numbness. Patient was observed for 30 min and was discharged after fulfilling the standard discharge criteria. Coding 74335 - Sacroiliac Procedure code (CPT) selection complete Assessment & Plan Assessment & Plan (1) Sacroiliac joint pain: Code(s): M53.3 - Sacrococcygeal disorders, not elsewhere classified Category: Medical Plan Patient is status post diagnostic right sacroiliac joint injection. Patient tolerated procedure well and was discharged home in stable condition with discharge instructions. All questions were answered. We will follow-up via telephone or in clinic to assess response to therapy. A follow-up appointment was made during today's visit. Orders: Orders FL guidance in treatment room Today Lona Ramirez APRN, MEDICAL CERTIFICATION SPECIALIST M53.3 - Sacrococcygeal disorders, not elsewhere classified AMB Joint Injection/Aspiration Today Wero Aleman MD M53.3 - Sacrococcygeal disorders, not elsewhere classified Coding Level of Care Code Procedure Only Diagnoses Sacroiliac joint pain M53.3 CPT Codes Coding - Joint 9: 97328 - Sacroiliac ([id number])
[2024-07-03 10:35] VITALS: BP 110/70; PULSE 70; O2SAT 99
--- OUTSIDE RECORDS SUMMARY | 2024-07-03 11:04 | XMS_ITS | Clinical Summary ---
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 73m2 [facility] BUN/CREATININE RATIO SEE NOTE: [facility] Comment: ?? Not Reported: BUN and Creatinine are within ?? reference range. ? SODIUM 137 135 - 146 mmol/L [facility] POTASSIUM 4.3 3.5 - 5.3 mmol/L [facility] CHLORIDE 104 98 - 110 mmol/L [facility] CARBON DIOXIDE 25 20 - 32 mmol/L [facility] CALCIUM 9.7 8.6 - 10.2 mg/dL [facility] PROTEIN, TOTAL 6.9 6.1 - 8.1 g/dL [facility] ALBUMIN 4.4 3.6 - 5.1 g/dL [facility] GLOBULIN 2.5 1.9 - 3.7 g/dL (calc) [facility] ALBUMIN/GLOBULI N RATIO 1.8 1.0 - 2.5 (calc) [facility] BILIRUBIN, TOTAL 0.5 0.2 - 1.2 mg/dL [facility] ALKALINE PHOSPHATASE 53 31 - 125 U/L [facility] AST 12 10 - 30 U/L [facility] ALT 10 6 - 29 U/L [facility] Blood Blood / Unknown 02/01/2023 1 2:01 PM EST 02/01/2023 12:01 PM EST [facility] - BLOOD DRAW Edited Result - Final Performing Organization Address City/[facility]/ZIP Co de Phone Number [facility] [address] [address], [place] [facility] [address] [address] * HIV-1 & HIV-2 ANTIBODIES (02/27/2019 2:54 PM EST) Pathologist [facility] HIV 1 AND 2 ANTIBODY SCREEN NEGATIVE NEGATIVE [facility] Comment: This assay is a 4th generation [...] PM EST 02/27/2019 2:[address] [facility] - 02/28/2019 11:42 AM EST [employer], [place] [address] Pie Crust Mixer - Jhoana Fernández MD PT ID [id number] ORD# [id number] [facility] - BLOOD DRAW Final Resu lt Performing Organization Address City/[facility]/ZIP Co de Phone Number [address] [address], * (ABNORMAL) HEPATITIS A,B,C PANEL (03/30/2017 10:20 AM EST) HEPATITIS B SURFACE ANTIBODY POSITIVE(A) NEGATIVE [facility] HEPATITIS B SURFACE ANTIGEN NEGATIVE NEGATIVE [facility] Comment: Over the counter supplements containing high doses of biotin may interfere with this assay. ??If interference is suspected, patients shoud be retested after refraining from biotin supplements for 72 hours. HEPATITIS C VIRUS DIAGNOSTIC NEGATIVE NEGATIVE [facility] HEPATITIS A ANTIBODY TOTAL NEGATIVE NEGATIVE [facility] Comment: Over the counter supplements containing high doses of biotin may interfere with this assay. ??If interference is suspected, patients shoud be retested after refraining from biotin supplements for 72 hours. HEPATITIS B CORE ANTIBODY NEGATIVE NEGATIVE [facility] Blood specimen (specimen) Blood / Unknown 03/30/2017 10:20 AM EST 03/30/2017 10:[address] [facility] - 03/30/2017 2:45 PM EST [facility] [employer] [address] [place] [address] PT ID [id number] ORD# [id number] [facility] - BLOOD DRAW Edited Result - Final [facility] [address] [place] [address], from Last 3 Months or Most Recently Relevant to Health Maintenance Insurance [id number] Care Teams Scarrer Relationship Specialty Start Date End Date Apollo Tang PA [address] [place] [address] PCP - General Internal Medicine 02/25/16
--- OUTSIDE RECORDS SUMMARY | 2024-07-03 11:04 | XMS_ITS | Clinical Summary ---
Author Organization [facility] it Address [address] [place] [address] Care Team Providers Care Unix Architect Name Role Phone Unavailable Primary Care Provider [...]
== END 2024-07-03 10:49 | disposition home or self-care (01) ==
LOC: HO.PMCPRC 10:01
PROVIDERS: PCP Dentist General Practice; Visit Provider Internal Medicine
DX: M53.3 Sacrococcygeal disorders, not elsewhere classified (principal)
CPT/HCPCS: 27096

== ENCOUNTER 2024-07-09 10:44 | Outpatient (AMB) | payer OTHER, SELFPAY ==
--- NOTE | 2024-07-09 10:46 | MHC.OFFVIS ---
Vital Signs 07/09/24 10:47 Height 5 ft 5 in Weight 188 lb BMI 31.3 BP 119/74 Blood Pressure Location Lt brachial Position Sitting Respiration 16 Pulse 78 Pulse Source Pulse Oximeter Pulse Oximetry (%) 98 Oxygen Delivery Method Room Air Intake Visit Reasons: s/p right Dx SIJ inj Product Development Worker Required: No Allergies tramadol Allergy (Severe, Verified 07/09/24 10:48) Anaphylaxis Medication List - Last Reconciled 07/09/24 by Andria Joya LPN cyclobenzaprine 5 mg PO TID PRN indomethacin 25 mg PO BID lidocaine 5% 1 patch topical DAILY HPI HPI s/p right Dx SIJ inj: Details: History of Present Illness The patient is a 33-year-old female presenting for a follow-up after receiving a diagnostic sacroiliac joint injection on the right side. Post-injection, she experienced sensations described as being in the kel and tingling in her leg, which resolved by the third day. She reports a 70% reduction in pain during the anesthetic phase, although pain persists during standing. The patient completed a course of physical therapy targeting her leg, but felt it lacked focus on her back issues, particularly noting that exercises were intended more for the knee. Previously completed physical therapy at [facility] did not provide significant relief or clarity regarding her condition. Pain Description - Onset: Post right sacroiliac joint injection - Quality: Tingling sensation, feeling of leg extension - Location: Right sacroiliac joint, with sensations extending to the leg - Exacerbating Factors: Standing - Relieving Factors: Time post-injection, therapeutic exercises - Interference: Impacts standing and activities requiring prolonged lower extremity engagement Physical Exam - Appears afebrile. - Alert and oriented. - Mood and affect appropriate. - Follows and participates in conversation appropriately. - Respiratory effort is unlabored. Results - Tests and Diagnostics: Prior diagnostic sacroiliac joint injection with local anesthetic provided >70% relief Pain Management - Affect: Not discussed - Analgesia: Reports 70% pain relief following diagnostic injection - Adverse Effects: Transient tingling and altered leg sensation post-injection - Activities of Daily Living: Pain interferes with standing; exercises recommended - Aberrant Drug-Related Behaviors: Not discussed Physical Exam Vital Signs: Last Vital Signs Pulse 78 07/09/24 10:47 Resp 16 07/09/24 10:47 BP 119/74 07/09/24 10:47 Pulse Ox 98 07/09/24 10:47 Oxygen Delivery Method Room Air 07/09/24 10:47 BMI result Body Mass Index 31.3 Assessment & Plan Assessment & Plan (1) Sacroiliac joint pain: Code(s): M53.3 - Sacrococcygeal disorders, not elsewhere classified Category: Medical Plan Plan - Perform a therapeutic corticosteroid injection of sacroiliac joint pain. - Continue recommended at-home lumbar and stretching exercises for pain alleviation. - Refrain from chiropractic treatments to avoid potential long-term worsening of condition. - Incorporate swimming as a low-impact exercise to support ongoing pain management and physical therapy regimen. - Patient advised to monitor pain levels and contact the clinic if severe episodes occur requiring additional intervention. Patient was informed and verbally consented to the use of an ambient scribe for clinic note documentation during this visit. Discussion Notes I discussed with the patient the nature of her sacroiliac joint pain and the initial response to the diagnostic injection, noting approximately 70% pain relief. We deliberated potential benefits versus risks of a cortisone injection for sustained analgesic effects and decided if symptoms return or worsen, we will proceed accordingly. Education was provided regarding long-term physical therapy and exercise as primary modalities to manage symptoms effectively. I advised against chiropractic manipulation due to its short-term nature and potential risks. I highlighted swimming as a valuable activity, especially during colder seasons. Future follow-ups are to be contingent upon changes in pain levels or function. Patient Instructions - Continue prescribed at-home stretching and lumbar exercises daily. - Avoid chiropractic treatments for management of current condition. - Begin a swimming regimen as a low-impact exercise option, if possible. - Contact us immediately if experiencing significantly intensified pain episodes or debilitating symptoms. Coding Level of Care Code Est Pt Level 3 (88078) Diagnoses Sacroiliac joint pain M53.3
[2024-07-09 10:47] VITALS: BP 119/74; PULSE 78; RESP 16; O2SAT 98; BMI 31.3
--- OUTSIDE RECORDS SUMMARY | 2024-07-09 11:48 | XMS_ITS | Clinical Summary ---
[facility] it Address [address] [place] [address] Care Team Providers Care Technical Document Writer Name Role Phone Unavailable Primary Care Provider [...]
--- OUTSIDE RECORDS SUMMARY | 2024-07-09 11:48 | XMS_ITS | Clinical Summary ---
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 07/03/2024 3:00 AM EDT Julioha Wero SCAN REFERRAL Final Result * COMPREHENSIVE METABOLIC PANEL (02/01/2023 12:01 PM EST) GLUCOSE 79 65 - 99 mg/dL [id number] Comment: ?Fasting reference interval UREA NITROGEN (BUN) 12 7 - 25 mg/dL [facility] CREATININE (blood) 0.71 0.50 - 0.97 mg/dL [facility] EGFR 114 > OR = 60 mL/min/1. 73m2 [facility] BUN/CREATININE RATIO SEE NOTE: [facility] Comment: ?? Not Reported: BUN and Creatinine are within ?? reference range. ? SODIUM 137 135 - 146 mmol/L [facility] POTASSIUM 4.3 3.5 - 5.3 mmol/L [facility] CHLORIDE 104 98 - 110 mmol/L [facility] CARBON DIOXIDE 25 20 - 32 mmol/L [facility] CALCIUM 9.7 8.6 - 10.2 mg/dL [facility] PROTEIN, TOTAL 6.9 6.1 - 8.1 g/dL [facility] ALBUMIN 4.4 3.6 - 5.1 g/dL [facility] GLOBULIN 2.5 1.9 - 3.7 g/dL (calc) [facility] ALBUMIN/GLOBULI N RATIO 1.8 1.0 - 2.5 (calc) [employer] [facility] BILIRUBIN, TOTAL 0.5 0.2 - 1.2 mg/dL [facility] ALKALINE PHOSPHATASE 53 31 - 125 U/L [facility] AST 12 10 - 30 U/L [facility] ALT 10 6 - 29 U/L [facility] Blood Blood / Unknown 02/01/2023 1 2:01 PM EST 02/01/2023 12:01 PM EST [facility] - BLOOD DRAW Edited Result - Final Performing Organization Address City/[facility]/ZIP Co de Phone Number [facility] [address] [address], [facility] [address] [address] * HIV-1 & HIV-2 ANTIBODIES (02/27/2019 2:54 PM EST) Pathologist [facility] HIV 1 AND 2 ANTIBODY SCREEN NEGATIVE NEGATIVE [facility] Comment: This assay is a 4th generation [...] PM EST 02/27/2019 2:54 PM EST Narrative [facility] - 02/28/2019 11:42 AM EST [employer], [place] [address] Medical Assistant Instructor - Jhoana Fernández MD PT ID [id number] ORD# [id number] [facility] - BLOOD DRAW Final Resu lt Performing Organization Address [facility]/[place] [address], * (ABNORMAL) HEPATITIS A,B,C PANEL (03/30/2017 10:20 AM EST) Pathologist [facility] HEPATITIS B SURFACE ANTIBODY POSITIVE(A) NEGATIVE [facility] HEPATITIS B SURFACE ANTIGEN NEGATIVE NEGATIVE [facility] Comment: Over the counter supplements containing high doses of biotin may interfere with this assay. ??If interference is suspected, patients shoud be retested after refraining from biotin supplements for 72 hours. HEPATITIS C VIRUS DIAGNOSTIC NEGATIVE NEGATIVE [facility] HEPATITIS A ANTIBODY TOTAL NEGATIVE NEGATIVE [facility] Comment: Over the counter supplements containing high doses of biotin may interfere with this assay. ??If interference is suspected, patients shoud be retested after refraining from biotin supplements for 72 hours. HEPATITIS B CORE ANTIBODY NEGATIVE NEGATIVE [facility] Blood specimen (specimen) Blood / Unknown 03/30/2017 10:20 AM EST 03/30/2017 10:33 AM EST Narrative [facility] - 03/30/2017 2:45 PM EST [facility] [address] [place] [address] PT ID [id number] ORD# [id number] [facility] - BLOOD DRAW Edited Result - Final [facility] [address] [place] [address], from Last 3 Months or Most Recently Relevant to Health Maintenance Insurance [facility] [employer] Care Teams Zinc Plate Cutter Relationship Specialty Start Date End Date Apollo Tang PA [address] [place] [address] PCP - General Internal Medicine 02/25/16
== END 2024-07-09 11:03 | disposition home or self-care (01) ==
LOC: HO.PMC 10:45
PROVIDERS: PCP Dentist General Practice; Visit Provider Internal Medicine
DX: M53.3 Sacrococcygeal disorders, not elsewhere classified (principal)
CPT/HCPCS: 99213

== ENCOUNTER → 2024-07-09 10:44 | Outpatient (BNVA) | payer OTHER, SELFPAY | PROVIDERS: PCP Dentist General Practice; Visit Provider Internal Medicine | DX: M53.3 Sacrococcygeal disorders, not elsewhere classified (principal) | CPT/HCPCS: 99212 ==

== ENCOUNTER → 2024-07-15 13:16 | Outpatient (BNVA) | payer OTHER, SELFPAY | PROVIDERS: PCP Dentist General Practice; Visit Provider Physician Assistant Medical | DX: M53.3 Sacrococcygeal disorders, not elsewhere classified (principal) | CPT/HCPCS: 99213 ==

== ENCOUNTER → 2024-08-05 13:12 | Outpatient (BNVA) | payer OTHER, SELFPAY | PROVIDERS: PCP Dentist General Practice; Visit Provider Physician Assistant Medical | DX: M53.3 Sacrococcygeal disorders, not elsewhere classified (principal); M54.50 Low back pain, unspecified; M48.07 Spinal stenosis, lumbosacral region | CPT/HCPCS: 99213 ==

== ENCOUNTER → 2024-09-04 13:32 | Outpatient (BNVA) | payer OTHER, SELFPAY | PROVIDERS: PCP Dentist General Practice; Visit Provider Physician Assistant Medical | DX: M53.3 Sacrococcygeal disorders, not elsewhere classified (principal); M54.50 Low back pain, unspecified | CPT/HCPCS: 99213 ==

== ENCOUNTER → 2024-10-06 11:01 | Outpatient (BNVA) | payer OTHER, SELFPAY | PROVIDERS: PCP Dentist General Practice; Visit Provider Physician Assistant Medical | DX: M53.3 Sacrococcygeal disorders, not elsewhere classified (principal); M54.50 Low back pain, unspecified | CPT/HCPCS: 99213 ==

== ENCOUNTER 2024-10-18 09:52 | Outpatient (REF) | payer OTHER, SELFPAY ==
--- NOTE | ~2024-10-18 | MR_ITS ---
CLINICAL HISTORY: PERSISTENT RT LOWER BACK PAIN, RADIATING TO RT PELVIS LEG MR lumbar spine without gadolinium Comparison: MR - MR LUMBAR SPINE WO CON - 04/12/24 08:19 EST MR/SR - MR LUMBAR SPINE WO CON - 03/23/22 15:00 EST Findings: No plain films are available for comparison. Thus, for numbering purposes, 5 lumbar type vertebral bodies will be presumed. This should be confirmed with plain films prior to any lumbar spinal intervention. 3 mm of retrolisthesis of L4 on L5 and L5 on S1. No acute fracture or pathologic bone lesion. Minimal reactive signal within the endplates adjacent to the L4-L5 and L5-S1 intervertebral disc. Cauda equina and conus medullaris within normal limits. Paraspinous musculature intact. No paraspinous masses L1-L2: No significant canal nor foraminal stenosis. L2-L3:Mild facet and ligamentum flavum hypertrophy. Mild epidural lipomatosis. No significant canal or foraminal stenosis. No significant change. L3-L4:Mild diffuse disc bulge. Mild facet and ligamentum flavum hypertrophy. Mild epidural lipomatosis. Mild canal stenosis. Mild bilateral foraminal stenosis. No significant change. L4-L5: Mild disc height loss and desiccation. Mild diffuse disc bulge with superimposed left posterolateral protrusion. Mild facet and ligamentum flavum hypertrophy. Mild canal stenosis. Moderate xlsz-acdeexn-vbfs-right foraminal stenosis. No significant change. L5-S1:Moderate disc height loss and desiccation. Mild diffuse disc bulge. Mild facet and ligamentum flavum hypertrophy. Mild canal stenosis. Moderate bilateral foraminal stenosis. No significant change. IMPRESSION: 1. Multilevel degenerative disc and facet disease, as well as ligamentum flavum hypertrophy. 2. Mild multilevel canal stenoses. 3. Multilevel foraminal stenoses, worst at L4-L5 and L5-S1 where there are moderate foraminal stenoses. 4. Plain film correlation is recommended for numbering purposes prior to any lumbar spinal intervention. This document has been electronically signed by: Usha Lyn MD on 10/20/2024 15:32:49
--- OUTSIDE RECORDS SUMMARY | 2024-10-18 09:54 | XMS_ITS | Clinical Summary ---
Author Organization [facility] Address [address] [place] [address] Care Team Providers Care Apparel Sales Associate Name Role Phone Apollo Tang Primary Care Provider [phone] Source Comments PLEASE NOTE, if this patient [...] FOR MUSCLE SPASMS 90 Tablet 3 Active fluticasone (FLONASE) 50 mcg/actuation nasal sprayIndications:H ospital discharge follow-up,Seasonal allergies Place 1 Willow in both nostrils once daily for 14 days. 16 g 2 5 Active benzonatate (TESSALON) 100 mg capsuleIndications :Hospital discharge follow-up,Seasonal allergies,Acute cough Take 1 Capsule by mouth 3 (three) times daily as needed for cough. 30 Capsule 5 Active fexofenadine (DAILY) 180 mg tabletIndications: Hospital discharge follow-up,Seasonal allergies,Itchy, watery, and red eye Take 1 Tablet by mouth once daily. 90 Tablet 5 Active ketotifen (ZADITOR) 0.025 % (0.035 %) ophthalmic solutionIndication s:Seasonal allergies,Itchy, watery, and red eye Place 1 Drop into both eyes 2 (two) times daily. 5 mL 1 5 Active Active Problems Problem Noted Date Diagnosed [...] chest pain 03/30/201503/2019 Gall stones 03/30/2015 02/27/2019 Encounters Date Type Department Care Team Description 08/27/2024 10:40 AM EDT Office Visit [facility] [address] [place] [address] Apollo Tang PA 08/11/2024 2:00 PM EDT Office Visit [facility] [address] [place] [address] Janice Hubbard PA-C from Last 3 Months Immunizations Immunization Administration Dates Next Due DTAP (Infanrix) 11/04/1992, 2,09/10/1990,1989,1988 HEP B, PED/ADOL (FSXDHDF-A-HOPM/RECOMBIVAX-PEDS) 08/13/2005,03/20/2005,11/24/2002,1990 HPV, QUADRIVALENT 03/21/2011,02/02/2009,07/23/19 09 INFLUENZA, SEASONAL, INJECTABLE 12/17/19 20,11/17/2015,12/09/2013,2013 IPV (IPOL) 11/04/1992, 1,12/13/1989,1988 MMR (MMR II/Priorix) 04/19/2005,05/31/19 05,11/04/1992,1990 PPD 02/27/2019, 8,11/15/2016,2015 TDAP 12/09/2013,03/05/2013 Td (adult) unspecified 02/04/2004 Family [...] Industry Job Start Date Job End Date [employer] Not on file Not on file Not on file Last Filed Vital Signs Vital Sign Reading Time Taken Comments Blood Pressure 111/74 08/27/2024 10:59 AM EDT Pulse 88 08/27/2024 10:59 AM EDT Temperature 36.7 C (98 F) 08/27/2024 10:59 AM EDT Respiratory Rate 20 08/27/2024 10:59 AM EDT Oxygen Saturation 96% 08/27/2024 10:59 AM EDT Inhaled Oxygen Concentration - - Weight 85.3 kg (188 lb) 08/27/2024 10:59 AM EDT Height 165.1 cm (5' 5 ) 08/27/2024 10:59 AM EDT Body Mass Index 31.28 08/27/2024 10:59 AM EDT Plan of Treatment Health Maintenance Due Date Last Done Comments HPV Screening 1988 Pap + HPV 1988 Cervical Cancer Screening 03/30/2018 Pap Smear 03/30/2018 03/30/2015 [id number] ( season) 2023 Imm-DTaP/Tdap/Td (9 - Td or Tdap) 10/08/2024 10/08/2014 (Managed by Outside Provider), 12/09/2013, 03/05/2013, Additional history exists Imm-Influenza (#1) 2024 12/17/2019, 0 03/29/2017, 11/17/2015, Additional history exists Annual Wellness (Adult): Indicated (All Coverage) 08/27/2025 08/27/2024, 02/01/2023, 02/27/2019, Additional history exists Anxiety Screening 08/27/2025 08/27/2024 Hypertension Screening (#1) 08/27/2025 Relationship Safety Screening/Counseling 08/27/2025 08/27/2024, 02/01/2023, 10/22/2020, Additional history exists Tobacco Screening 08/27/2025 08/27/2024, 02/01/2023 Diabetes Screening 08/28/2027 08/27/2024, 0 08/27/2024, 02/01/2023, Additional history exists Lipid Screening 08/28/2027 08/27/2024, 08/2022, 02/27/2019, Additional history exists Imm-Hepatitis B Discontinued 08/13/2005, 02/27, 11/24/2002, Additional history exists Hepatitis C Screening Completed 03/30/2017 HIV Screening Completed 02/27/2019, 03/30/2017 Alcohol and Drug Screen Addressed 08/28/19 25, 02/01/2023, 10/22/2020, Additional history exists Overridden with the intention of not completing the topic Depression Annual Screen Completed 025, 03/29/2017, 03/30/2015, Additional history exists Cervical Ablation/Cold-Knife Conization Discontinued Cervical Cryotherapy Discontinued Colposcopy Discontinued Endometrial Biopsy Discontinued Excision/Leep Discontinued HPV Genotyping Discontinued Vaginal Pap Discontinued Vulvoscopy Discontinued Procedures Procedure Name Priority Date/Time Associated Diagnosis Comments LIPID PANEL Routine 08/27/2024 11:37 AM EDT Class 1 obesity Routine adult health maintenance BLOOD COUNT COMPLETE AUTOMATED Routine 08/27/2024 11:37 AM EDT Class 1 obesity Routine adult health maintenance Lumbar spine instability Lumbar spine pain Lumbar spine strain, initial encounter COMPREHENSIVE METABOLIC PANEL Routine 08/27/2024 11:37 AM EDT Class 1 obesity Routine adult health maintenance Lumbar spine instability Lumbar spine pain Lumbar spine strain, initial encounter HGBA1C W/MPG Routine 08/27/2024 11:37 AM EDT Class 1 obesity Routine adult health maintenance Lumbar spine instability Lumbar spine pain Lumbar spine strain, initial encounter ANTIBODY HIV-1&HIV-2 SINGLE RESULT Routine 02/27/2019 2:54 PM EST Encounter for general adult medical examination w/o abnormal findings HEPATITIS A,B,C PANEL Routine 03/30/2017 10:20 AM EST Routine adult health maintenance from Last 3 Months or Most Recently Relevant to Health Maintenance Results * HGBA1C W/MPG Routine (08/27/2024 11:37 AM EDT) HEMOGLOBIN A1C 5.5 <5.7 % [facility] Comment: For the purpose of screening for the presence of diabetes: <5.7% Consistent with the absence of diabetes 5.7-6.4% Consistent with increased risk for diabetes (prediabetes) > or =6.5% Consistent with diabetes This assay result is consistent with a decreased risk of diabetes. Currently, no consensus exists regarding use of hemoglobin A1c for diagnosis of diabetes in children. According to [place] Diabetes Association (ADA) guidelines, hemoglobin A1c <7.0% represents optimal control in non- diabetic patients. Different metrics may apply to specific patient populations. Standards of Medical Care in Diabetes(ADA). MEAN PLASMA GLUCOSE 119 mg/dL (calc) [facility] Blood Blood / Unknown 08/27/2024 1 1:37 AM EDT 08/27/2024 11:38 AM EDT [facility] - BLOOD DRAW Edited Result - Final [employer] [address] [place] [phone], [facility] [address] [place] [phone] * (ABNORMAL) BLOOD COUNT COMPLETE AUTOMATED Routine (08/27/2024 11:37 AM EDT) WHITE BLOOD CELL COUNT 5.8 3.8 - 10.8 Thousand/ uL [facility] RED BLOOD CELL COUNT 4.93 3.80 - 5.10 Million/u L [facility] HEMOGLOBIN 13.6 11.7 - 15.5 g/dL [facility] HEMATOCRIT 42.9 35.0 - 45.0 % [facility] MCV 87.0 80.0 - 100.0 fL [facility] MCH 27.6 27.0 - 33.0 pg [facility] MCHC 31.7(L) 32.0 - 36.0 g/dL [facility] Comment: For adults, a slight decrease in the calculated MCHC value (in the range of 30 to 32 g/dL) is most likely not clinically significant; however, it should be interpreted with caution in correlation with other red cell parameters and the patient's clinical condition. RDW 12.7 11.0 - 15.0 % [facility] PLATELET COUNT 264 140 - 400 Thousand/ uL [facility] MPV 10.0 7.5 - 12.5 fL [facility] Blood Blood / Unknown 08/27/2024 1 1:37 AM EDT 08/27/2024 11:38 AM EDT [facility] - BLOOD DRAW Edited Result - Final [employer] [address] [address], [facility] [address] [address] * (ABNORMAL) LIPID PANEL Routine (08/27/2024 11:37 AM EDT) CHOLESTEROL, TOTAL 197 <200 mg/dL [facility] HDL CHOLESTEROL 58 > OR = 50 mg/dL [facility] TRIGLYCERIDES 111 <150 mg/dL [facility] LDL-CHOLESTEROL 117(H) 99 mg/dL (calc) [facility] Comment: Reference range: <100 Desirable range <100 mg/dL for primary prevention; <70 mg/dL for patients with CHD or diabetic patients with > or = 2 CHD risk factors. LDL-C is now calculated using the Glenda calculation, which is a validated novel method providing better accuracy than the Friedewald equation in the estimation of LDL-C. Harlan STEEN et al. CARROLL. 2013;310(19): 0484-4576 (http://education.[employer].Alter-G/faq/XCT042) CHOL/HDLC RATIO 3.4 <5.0 (calc) [facility] NON-HDL CHOLESTEROL 139(H) <130 mg/dL (calc) [facility] Comment: For patients with diabetes plus 1 major ASCVD risk factor, treating to a non-HDL-C goal of <100 mg/dL (LDL-C of <70 mg/dL) is considered a therapeutic option. Blood Blood / Unknown 08/27/2024 1 1:37 AM EDT 08/27/2024 11:38 AM EDT [facility] - BLOOD DRAW Final Result [facility] [address] [address], [employer] [address] [place] [address] * COMPREHENSIVE METABOLIC PANEL Routine (08/27/2024 11:37 AM EDT) GLUCOSE 88 65 - 99 mg/dL [facility] Comment: Fasting reference interval UREA NITROGEN (BUN) 14 7 - 25 mg/dL [facility] CREATININE (blood) 0.75 0.50 - 0.97 mg/dL [facility] EGFR 106 > OR = 60 mL/min/1. 73m2 [facility] BUN/CREATININE RATIO SEE NOTE: [facility] Comment: Not Reported: BUN and Creatinine are within reference range. SODIUM 139 135 - 146 mmol/L [facility] POTASSIUM 3.9 3.5 - 5.3 mmol/L [facility] CHLORIDE 104 98 - 110 mmol/L [facility] CARBON DIOXIDE 29 20 - 32 mmol/L [facility] CALCIUM 9.7 8.6 - 10.2 mg/dL [facility] PROTEIN, TOTAL 6.9 6.1 - 8.1 g/dL [facility] ALBUMIN 4.2 3.6 - 5.1 g/dL [facility] GLOBULIN 2.7 1.9 - 3.7 g/dL (calc) [facility] ALBUMIN/GLOBULI N RATIO 1.6 1.0 - 2.5 (calc) [facility] BILIRUBIN, TOTAL 0.6 0.2 - 1.2 mg/dL [facility] ALKALINE PHOSPHATASE 47 31 - 125 U/L [facility] AST 11 10 - 30 U/L [facility] ALT 10 6 - 29 U/L [facility] Blood Blood / Unknown 08/27/2024 1 1:37 AM EDT 08/27/2024 11:38 AM EDT [facility] - BLOOD DRAW Final Result [facility] [employer] [address] [address], [facility] [address] [address] * HIV-1 & HIV-2 ANTIBODIES (02/27/2019 2:54 PM EST) HIV 1 AND 2 ANTIBODY SCREEN NEGATIVE NEGATIVE [facility] Comment: This assay is a 4th generation assay allowing for earlier detection of HIV infection by detecting the presence of the HIV-1 p24 antigen as well as the traditional antibodies to HIV type 1 (including group O) and type 2. Use of a 4th generation assay is the current CDC recommendation for HIV screening. Blood specimen (specimen) Blood / Unknown 02/27/2019 2:54 PM EST 02/27/2019 2:54 PM EST Narrative [facility] - 02/28/2019 11:42 AM EST [employer], [place] [address] [employer] - Jhoana Fernández MD PT ID [id number] ORD# [id number] [facility] - BLOOD DRAW Final Resu lt Performing Organization Address City/[facility]/ZIP Co de Phone Number [address] [address], * (ABNORMAL) HEPATITIS A,B,C PANEL (03/30/2017 10:20 AM EST) HEPATITIS B SURFACE ANTIBODY POSITIVE(A) NEGATIVE [facility] HEPATITIS B SURFACE ANTIGEN NEGATIVE NEGATIVE [facility] Comment: Over the counter supplements containing high doses of biotin may interfere with this assay. If interference is suspected, patients shoud be retested after refraining from biotin supplements for 72 hours. HEPATITIS C VIRUS DIAGNOSTIC NEGATIVE NEGATIVE [facility] HEPATITIS A ANTIBODY TOTAL NEGATIVE NEGATIVE [facility] Comment: Over the counter supplements containing high doses of biotin may interfere with this assay. If interference is suspected, patients shoud be retested after refraining from biotin supplements for 72 hours. HEPATITIS B CORE ANTIBODY NEGATIVE NEGATIVE [facility] Blood specimen (specimen) Blood / Unknown 03/30/2017 10:20 AM EST 03/30/2017 10:33 AM EST Narrative [facility] - 03/30/2017 2:45 PM EST [facility] [employer] [address] [place] [address] PT ID [id number] ORD# [id number] [facility] - BLOOD DRAW Edited Result - Final [facility] [address] [place] [address], from Last 3 Months or Most Recently Relevant to Health Maintenance Insurance [employer] [place] Member Subscriber Plan / Payer (Ef fective 2022-Present) Name:Travis Martymikaela Relation to Subscriber:Self Name:Celia Robles Payer ID:[id number] Type:Indemnity Address: [facility] [address] [place] [address] Care Teams Apparel Sales Associate Relationship Specialty Start Date End Date Apollo Tang PA [address] [place] [address] PCP - General Internal Medicine 02/25/16
--- OUTSIDE RECORDS SUMMARY | 2024-10-18 09:54 | XMS_ITS | Clinical Summary ---
Author Organization [place] [address] [place] [facility] Building Address [address] [place] [phone] Phone Care Team Providers Care Peoplesoft Functional Analyst Name Role Phone Casey Ortega Primary Care Provider [phone] Allergies Active Allergy Reactions Criticality Noted Date Comments Tramadol Anaphylaxis High 08/09/2024 Tuna Oil Rash 08/09/2024 Medications fexofenadine (DAILY) 180 mg tablet Take 1 tablet (180 mg total) by mouth 1 (one) time each day. Active Active Problems No known active problems Encounters Date Type Department Care Team Description 08/09/2024 3:45 PM EDT Office Visit [facility] - [address] [phone] Casey Ortega PA Seasonal allergies (Primary Dx) from Last 3 Months Social History Tobacco Use Types Packs/Day Years Used Date Smoking Tobacco: Never Assessed Comments No Sex and Gender Information Value Date Recorded Sex Assigned at Not on file Legal Sex Female 2:14 AM EST Gender Identity Not on file Sexual Orientation Not on file Obstetrics History Last Filed Vital Signs Vital Sign Reading Time Taken Comments Blood Pressure 92/62 08/09/2024 3:47 PM EDT Pulse 98 08/09/2024 3:47 PM EDT Temperature 36.7 C (98 F) 08/09/2024 3:47 PM EDT Respiratory Rate - - Oxygen Saturation 98% 08/09/2024 3:47 PM EDT Inhaled Oxygen Concentration - - Weight - - Height - - Body Mass Index - - Plan of Treatment Health Maintenance Due Date Last Done Comments Cervical Cancer Screening: Pap Smear 2009 Hepatitis C Screening 01/29/2022 Social Influencers of Health Screening 01/29/2022 COVID-19 Vaccine ( season) 2023 DTaP,Tdap,and Td Vaccines (9 - Td or Tdap) 12/10/2023 12/09/2013, 03/05/2013, 02/04/2004, Additional history exists Depression Screening 02/27/2024 Influenza Vaccine (#1) 2024 , 11/17/2015, 12/09/2013, Additional history exists Cholesterol Screening (Lipid Panel) 02/02/2028 02/01/2023, 02/01/2023, 02/27/2019, Additional history exists IPV Vaccines Completed 11/04/1992, 08/26, 12/13/1989, Additional history exists MMR Vaccines Completed 04/19/2005, 05/2004, 11/04/1992, Additional history exists Hepatitis B Vaccines Completed 08/13/2005, 03/20/2005, 11/24/2002, Additional history exists HPV Vaccines Completed 03/21/2011, 09/2008, 07/22/2008 HIV Screening Completed 02/27/2019 HIB Vaccines Aged Out No longer eligi [...] age to complete this topic Pneumococcal Vaccine: Pediatrics (0 to 5 Years) and At-Risk Patients (6 to 49 Years) Aged Out No longer eligible based on patient's age to complete this topic RSV Immunization Patients Under 20 months Aged Out No longer eligible based on patient's age to complete this topic Varicella Vaccines Aged Out No longer eligible based on patient's age to complete this topic Insurance [facility] Care Teams Peoplesoft Functional Analyst Relationship Specialty Start Date End Date Casey Ortega PA [address] [place] [id number] PCP - General Orthopaedics 08/09/24
--- OUTSIDE RECORDS SUMMARY | 2024-10-18 09:54 | XMS_ITS | Clinical Summary ---
Author Organization [facility] Address [address] [place], [place] [id number] Phone Care Team Providers Care Lens Dotter Name Role Phone Unknown, Unknown Primary Care Provider Matteo padgett Social History Tobacco Use Types Packs/Day Years Used Date Smoking Tobacco: Never Assessed Education Answer Date Recorded Are you interested in more education? Not on twan e 06/24/2022 Are you concerned about learning? Not on file 06/24/2022 No 06/24/2022 No 06/24/2022 Digital Access Answer Date Recorded No 07/25/2022 No 07/25/2022 Reliable internet access at home? Not on file 07/25/2022 Device with a working camera? Not on file Comments Unknown Sex and Gender Information Value Date Recorded Sex Assigned at Not on file Legal Sex Female 2:49 PM EDT Gender Identity Not on file Sexual Orientation Not on file Plan of Treatment Health Maintenance Due Date Last Done Comments Adult Td,Tdap Booster 1988 DEPRESSION SCREENING 2000 SMOKING Hx and SMOKELESS TOB ACCO SCREENING 2001 HEPATITIS C SCREENING 2006 HIV ONE-TIME SCREENING (18-6 5 YEARS) 2006 PAP SMEAR 2009 COVID-19 VACCINE (2023-2 5 season) 2023 HEPATITIS A VACCINES Aged Out No long er eligible based on patient's age to complete this topic HIB VACCINES Aged Out No longer eligi ble based on patient's age to complete this topic MENINGOCOCCAL VACCINES (ACWY) Aged Out No longer eligible based on patient's age to complete this topic MENINGOCOCCAL VACCINES (B) Aged Out N o longer eligible based on patient's age to complete this topic PNEUMOCOCCAL VACCINES (0-49 years) Aged Out No longer eligible based on patient's age to complete this topic Medical Devices Not on file Insurance [employer] Care Teams Lens Dotter Relationship Specialty Start Date End Date Unknown, Unknown, PCP - General 05/26/22 Additional Source Comments The information contained in this document represents components of the legal health record. It is not the complete legal health record.[facility]
== END 2024-10-18 09:53 | disposition home or self-care (01) ==
LOC: HO.MRI 09:52
PROVIDERS: Visit Provider Internal Medicine
DX: M54.50 Low back pain, unspecified (principal)
CPT/HCPCS: 72148

== ENCOUNTER → 2024-10-18 10:10 | Outpatient (BNV) | payer OTHER, SELFPAY | PROVIDERS: Visit Provider Radiology Diagnostic Radiology | DX: M51.360 Other intervertebral disc degeneration, lumbar region with discogenic back pain only (principal); M99.63 Osseous and subluxation stenosis of intervertebral foramina of lumbar region | CPT/HCPCS: 72148 ==

== ENCOUNTER → 2024-11-06 10:54 | Outpatient (BNVA) | payer OTHER, SELFPAY | PROVIDERS: Visit Provider Emergency Medicine | DX: M25.551 Pain in right hip (principal) | CPT/HCPCS: 73502; 99215 ==

== ENCOUNTER → 2024-12-11 11:13 | Outpatient (BNVA) | payer OTHER, SELFPAY | PROVIDERS: Visit Provider Physician Assistant Medical | DX: M54.50 Low back pain, unspecified (principal); M53.3 Sacrococcygeal disorders, not elsewhere classified; M46.1 Sacroiliitis, not elsewhere classified; M25.551 Pain in right hip; M25.562 Pain in left knee | CPT/HCPCS: 99213 ==

== ENCOUNTER 2025-01-03 09:13 | Outpatient (REF) | payer OTHER, SELFPAY ==
--- NOTE | ~2025-01-03 | MR_ITS ---
EXAMINATION: MR HIP WITHOUT CONTRAST, RIGHT CLINICAL INFORMATION: Pain, radiating to leg. Patient reports Status post fall 2021, right hip and leg pain. COMPARISON: None available. TECHNIQUE: MRI of the right hip was obtained using routine sequences on a high-field strength magnet. FINDINGS: BONE/JOINTS: Hip alignment is anatomic. Hip joint space appears maintained. No high-grade chondral loss. No evidence of acute fracture, avascular necrosis or stress reaction. 7 mm low T1/T2 signal focus in the right ischial tuberosity, probably consistent with a sclerotic lesion, probable bone island. No suspicious lytic or blastic lesion is otherwise seen. Symphysis pubis is intact. Partially visualized inferior right SI joint appears unremarkable. LABRUM: No labral tear is seen. MUSCLES/TENDONS: Mild tendinosis of the gluteus minimus and gluteus medius. Mild edema in the quadratus femoris muscle, could reflect muscle strain. JOINT FLUID/BURSA: Mild edema in the soft tissues lateral to the greater trochanter. No significant iliopsoas bursitis. No significant hip joint effusion. INTRAPELVIS STRUCTURES: Subcentimeter right groin lymph nodes. The urinary bladder appears unremarkable.. MR/MR hip RT wo con IMPRESSION: 1. No acute osseous abnormality. No evidence of acute fracture, avascular necrosis or stress reaction. 2. 7 mm low T1 signal focus in the right ischial tuberosity, probable bone island. 3. Mild gluteus minimus and medius medius tendinosis. 4. Mild quadriceps femoris muscle edema, could reflect muscle strain. Electronically signed by: Davion Wilcox MD 01/05/2025 11:16 AM EST
--- OUTSIDE RECORDS SUMMARY | 2025-01-03 09:16 | XMS_ITS | Clinical Summary ---
Author Organization [facility] Address [address] [place], [place] [id number] Phone Care Team Providers Care Embossing Clerk Name Role Phone Unknown, Unknown Primary Care [...] (18-6 5 YEARS) 2006 PAP SMEAR 2009 INFLUENZA VACCINE (#1) 2024 COVID-19 VACCINE ( - 2024-2 6 season) 2024 HEPATITIS A VACCINES Aged Out No long [...] topic Medical Devices Not on file [place] [address] [place] [address] [employer] Care Teams Embossing Clerk Relationship Specialty Start Date End Date Unknown, Unknown, PCP - General 05/26/22 Additional Source Comments The information contained in this document represents components of the legal health record. It is not the complete legal health record.[facility]
--- OUTSIDE RECORDS SUMMARY | 2025-01-03 09:16 | XMS_ITS | Clinical Summary ---
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 file Not on file Not [...] Due Date Last Done Comments HPV Screening (self-collect) 1988 HPV Screening 1988 Pap + HPV 1988 Cervical Cancer Screening 03/30/2018 Pap Smear 03/30/2018 03/30/2015 Imm-DTaP/Tdap/Td (9 - Td or Tdap) 10/08/2024 10/08/2014 (Managed by Outside Provider), 12/09/2013, 03/05/2013, Additional history exists [id number]-12 ( season) 2024 Imm-Influenza (#1) 2024 12/17/2019, 0 03/29/2017, 11/17/2015, [...] Discontinued 08/13/2005, 02/27, 11/24/2002, Additional history exists Imm-HPV Completed 03/21/2011, 09/2008, 07/22/2008 Hepatitis C Screening Completed 03/30/2017 HIV Screening Completed 02/27/2019, 03/30/2017 Alcohol and Drug Screen Addressed 08/28/19 25, 02/01/2023, 10/22/2020, Additional history exists Overridden with the intention of not completing the topic Depression Annual Screen Completed 025, 03/29/2017, 03/30/2015, Additional history exists Cervical Ablation/Cold-Knife Conization Discontinued Cervical Cryotherapy Discontinued Colposcopy Discontinued Excision/Leep Discontinued HPV Genotyping Discontinued Vaginal Pap Discontinued Vulvoscopy Discontinued Procedures Procedure Name Priority Date/Time Associated Diagnosis Comments HGBA1C W/MPG Routine 08/27/2024 11:37 AM EDT Class 1 obesity Routine adult health maintenance Lumbar spine instability Lumbar spine pain Lumbar spine strain, initial encounter LIPID PANEL Routine 08/27/2024 11:37 AM EDT Class 1 obesity Routine adult health maintenance ANTIBODY HIV-1&HIV-2 SINGLE RESULT Routine 02/27/2019 2:54 PM EST Encounter for general adult medical examination w/o abnormal findings HEPATITIS A,B,C PANEL Routine 03/30/2017 10:20 AM EST Routine adult health maintenance from Last 3 Months or Most Recently Relevant to Health Maintenance Results * HGBA1C W/MPG Routine (08/27/2024 11:37 AM EDT) HEMOGLOBIN A1C 5.5 <5.7 % [facility] Comment: For the purpose of screening for the presence of diabetes: <5.7% Consistent with the absence of diabetes 5.7-6.4% Consistent with increased risk for diabetes (prediabetes) > or =6.5% Consistent with diabetes This assay result is consistent with a decreased risk of diabetes. Currently, no consensus exists regarding use of hemoglobin A1c for diagnosis of diabetes in children. According to [place] Diabetes Association (ADA) guidelines, hemoglobin A1c <7.0% represents optimal control in non- diabetic patients. Different metrics may apply to specific patient populations. Standards of Medical Care in Diabetes(ADA). MEAN PLASMA GLUCOSE 119 mg/dL (calc) [employer] Blood Blood / Unknown 08/27/2024 1 1:37 AM EDT 08/27/2024 11:38 AM EDT [facility] - BLOOD DRAW Edited Result - Final [employer] [facility] [address] [place] [id number], [employer] [address] [place] [phone] * (ABNORMAL) LIPID PANEL Routine (08/27/2024 11:37 AM EDT) [facility] CHOLESTEROL, TOTAL 197 <200 mg/dL [facility] HDL CHOLESTEROL 58 > OR = 50 mg/dL [facility] TRIGLYCERIDES 111 <150 mg/dL [facility] LDL-CHOLESTEROL 117(H) 99 mg/dL (calc) [facility] Comment: Reference range: <100 Desirable range <100 mg/dL for primary prevention; <70 mg/dL for patients with CHD or diabetic patients with > or = 2 CHD risk factors. LDL-C is now calculated using the Harlan-Angel calculation, which is a validated novel method providing better accuracy than the Friedewald equation in the estimation of LDL-C. Harlan SS et al. CARROLL. 2013;310(19): 5552-7532 (http://education.[employer]/faq/AWH098) CHOL/HDLC RATIO 3.4 <5.0 (calc) [facility] NON-HDL CHOLESTEROL 139(H) <130 mg/dL (calc) [facility] Comment: For patients with diabetes plus 1 major ASCVD risk factor, treating to a non-HDL-C goal of <100 mg/dL (LDL-C of <70 mg/dL) is considered a therapeutic option. Blood Blood / Unknown 08/27/2024 1 1:37 AM EDT 08/27/2024 11:38 AM EDT [facility] - BLOOD DRAW Final Result Performing Organization Address City/[facility]/ZIP Co de Phone Number [facility] [address] [address], [facility] [address] [place] [address] * HIV-1 & HIV-2 ANTIBODIES (02/27/2019 2:54 PM EST) Pathologist [facility] HIV 1 AND 2 ANTIBODY SCREEN NEGATIVE NEGATIVE [facility] Comment: This assay is a 4th [...] PM EST 02/27/2019 2:54 PM EST Narrative [facility] - 02/28/2019 11:42 AM EST [employer], [place] [address] Museum Attendant - Jhoana Fernández MD PT ID [id number] ORD# [id number] [facility] - BLOOD DRAW Final Resu lt Performing Organization Address City/[facility] Co de Phone Number [address] [address], * (ABNORMAL) HEPATITIS A,B,C PANEL (03/30/2017 10:20 AM EST) Pathologist [facility] HEPATITIS B SURFACE ANTIBODY POSITIVE(A) NEGATIVE [facility] HEPATITIS B SURFACE ANTIGEN NEGATIVE NEGATIVE [facility] Comment: Over the counter supplements containing high doses of biotin may interfere with this assay. If interference is suspected, patients shoud be retested after refraining from biotin supplements for 72 hours. HEPATITIS C VIRUS DIAGNOSTIC NEGATIVE NEGATIVE [facility] HEPATITIS A ANTIBODY TOTAL NEGATIVE NEGATIVE [facility] Comment: Over the counter supplements containing high doses of biotin may interfere with this assay. If interference is suspected, patients shoud be retested after refraining from biotin supplements for 72 hours. HEPATITIS B CORE ANTIBODY NEGATIVE NEGATIVE [facility] Blood specimen (specimen) Blood / Unknown 03/30/2017 10:20 AM EST 03/30/2017 10:33 AM EST Narrative [facility] - 03/30/2017 2:45 PM [facility] [employer] [address] [place] [address] PT ID [id number] ORD# [id number] [facility] - BLOOD DRAW Edited Result - Final [facility] [address] [place] [address], from Last 3 Months or Most Recently Relevant to Health Maintenance Insurance [employer] [facility] Member Subscriber Plan / Payer (Ef fective 2022-Present) Name:Celia Robles Relation to Subscriber:Self Name:[place] Payer ID:[id number] Type:Indemnity Address: [facility] [address] [place] [address] Care Teams Environmental Field Technician Relationship Specialty Start Date End Date Apollo Tang PA PCP - General Internal Medicine 02/25/16
--- OUTSIDE RECORDS SUMMARY | 2025-01-03 09:16 | XMS_ITS | Clinical Summary ---
Author Organization [place] [address] [address] [facility] Building Address [address] [place] [address] Phone Care Team Providers Care Combiner Name Role Phone Casey Ortega Primary Care Provider [phone] Allergies Active Allergy Reactions Criticality Noted Date Comments Tramadol Anaphylaxis High 08/09/2024 Tuna Oil Rash 08/09/2024 Medications fexofenadine (DAILY) 180 mg tablet Take 1 tablet (180 mg total) by mouth 1 (one) time each day. Active Active Problems No known active problems Social History Tobacco Use Types Packs/Day Years [...] 01/29/2022 Social Influencers of Health Screening 01/29/2022 DTaP,Tdap,and Td Vaccines (9 - Td or Tdap) 12/10/2023 12/09/2013, 03/05/2013, 02/04/2004, Additional history exists Depression Screening 02/27/2024 COVID-19 Vaccine ( season) 2024 Influenza Vaccine (#1) 2024 0, 11/17/2015, 12/09/2013, Additional history exists Cholesterol Screening (Lipid Panel) 02/02/2028 02/01/2023, 02/01/2023, 02/27/2019, Additional history exists RSV Immunization Adult Patients (1 - 1-dose 75+ series) 08/30/2063 IPV Vaccines Completed 11/04/1992, 08/26, 12/13/1989, Additional [...] patient's age to complete this topic Insurance [employer] [facility] Care Teams Combiner Relationship Specialty Start Date End Date Casey Ortega PA [address] [place], [place] [address] [address] PCP - General Orthopaedics 08/09/24
== END 2025-01-03 09:14 | disposition home or self-care (01) ==
LOC: HO.MRI 09:13
PROVIDERS: Visit Provider Internal Medicine
DX: M25.551 Pain in right hip (principal)
CPT/HCPCS: 73721

== ENCOUNTER → 2025-01-03 09:29 | Outpatient (BNV) | payer OTHER, SELFPAY | PROVIDERS: Visit Provider Radiology Diagnostic Ultrasound | DX: M76.01 Gluteal tendinitis, right hip (principal); M62.89 Other specified disorders of muscle | CPT/HCPCS: 73721 ==

== ENCOUNTER → 2025-01-08 10:21 | Outpatient (BNVA) | payer OTHER, SELFPAY | PROVIDERS: PCP Physician Assistant; Visit Provider Physician Assistant Medical | DX: M46.1 Sacroiliitis, not elsewhere classified (principal); M25.551 Pain in right hip; S76.311D Strain of muscle, fascia and tendon of the posterior muscle group at thigh level, right thigh, subsequent encounter; X50.3XXD Overexertion from repetitive movements, subsequent encounter; M25.562 Pain in left knee | CPT/HCPCS: 99213 ==

== ENCOUNTER → 2025-02-05 10:09 | Outpatient (BNVA) | payer OTHER, SELFPAY | PROVIDERS: PCP Physician Assistant; Visit Provider Physician Assistant Medical | DX: M51.27 Other intervertebral disc displacement, lumbosacral region (principal); M46.1 Sacroiliitis, not elsewhere classified; M48.07 Spinal stenosis, lumbosacral region; M25.551 Pain in right hip; M25.562 Pain in left knee; S76.111D Strain of right quadriceps muscle, fascia and tendon, subsequent encounter; X50.3XXD Overexertion from repetitive movements, subsequent encounter | CPT/HCPCS: 99213 ==